=== PATIENT | female | born 1960 | race Caucasian/White ===

== ENCOUNTER → 2020-07-12 10:03 | Outpatient (BNVA) | payer MEDICARE, MEDICAID, SELFPAY | PROVIDERS: Family Provider Internal Medicine; PCP Internal Medicine; Visit Provider Internal Medicine Rheumatology | DX: M25.50 Pain in unspecified joint (principal); Z11.59 Encounter for screening for other viral diseases; Z79.899 Other long term (current) drug therapy; Z11.1 Encounter for screening for respiratory tuberculosis; R76.8 Other specified abnormal immunological findings in serum; M79.7 Fibromyalgia; R79.82 Elevated C-reactive protein (CRP); Z79.52 Long term (current) use of systemic steroids | CPT/HCPCS: 36415; 81001; 82306; 82570; 84156; 85651; 86140; 86480; 86704; 86803; 87340; 99204 ==

== ENCOUNTER 2020-07-17 12:54 | Outpatient (CLI) | payer MEDICARE, MEDICAID, SELFPAY ==
--- NOTE | 2020-07-17 13:16 | XR_ITS ---
WS: [id number] RIGHT FOOT: 3 VIEW(S) TECHNIQUE: AP, oblique and lateral. HISTORY: INFLAMMATORY ARTHRITIS COMPARISON: None available. No acute fracture or dislocation. Normal tarsal/metatarsal alignment. No metacarpal head erosions. Mild narrowing of the interphalangea l joints. No subluxations. Moderate size calcaneal spur. No soft tissue abnormality or bone destruction. XR/XR foot RT min 3V* [id number] IMPRESSION: Mild osteoarthritis at the interphalangeal joints. No erosions.
--- NOTE | 2020-07-17 13:16 | XR_ITS ---
WS: [id number] RIGHT HAND: 3 VIEW(S) TECHNIQUE: PA, oblique and lateral. HISTORY: INFLAMMATORY ARTHRITIS COMPARISON: None available. No acute fracture or dislocation. Mild foreshortening of the fourth and fifth metacarpals. No erosions. No periods cystitis or bone res orption. Mild narrowing of the interphalangeal joints. XR/XR hand RT min 3V* [id number] IMPRESSION: Mild osteoarthritis.
--- NOTE | 2020-07-17 13:30 | XR_ITS ---
WS: [id number] CHEST 2 VIEWS HISTORY: inflammatory arthritis COMPARISON: None available. Lungs: Clear with no abnormality. No pleural effusion or pneumothorax. Cardiac size: Normal. Mediastinum/Aorta: Normal mediastinum. Bones: RIGHT lateral dense osteophytes in the midthoracic spine. Prior cholecystectomy. XR/XR chest 2V* [id number] IMPRESSION: No acute cardiopulmonary disease.
--- NOTE | 2020-07-17 13:45 | XR_ITS ---
WS: [id number] LEFT HAND: 3 VIEW(S) TECHNIQUE: PA, oblique and lateral. HISTORY: inflammatory arthritis COMPARISON: None available. No acute fracture or dislocation. Mild narrowing of the interphalangeal joints. Mild shortening of the metacarpals. No erosions at the metacarpal heads. Cystic change in the scaphoid. Mild narrowing of the radial ulnar articulation. No osteopenia. XR/XR hand LT min 3V* [id number] IMPRESSION: Mild osteoarthritis. No erosions.
--- NOTE | 2020-07-17 14:00 | XR_ITS ---
WS: [id number] LEFT FOOT: 3 VIEW(S) TECHNIQUE: AP, oblique and lateral. HISTORY: inflammatory arthritis COMPARISON: None available. No acute fracture or dislocation. Normal tarsal/metatarsal alignment. Mild narrowing of the interphalangeal joints. No erosions. Mild bony hypertrophy in the proximal fift h metatarsal. Moderate size calcaneal spur. XR/XR foot LT min 3V* [id number] IMPRESSION: Osteoarthritis. Moderate size calcaneal spur.
== END 2020-07-17 12:55 | disposition home or self-care (01) ==
LOC: RADWPI 12:59
PROVIDERS: Family Provider Internal Medicine; PCP Internal Medicine; Visit Provider Internal Medicine Rheumatology
DX: M19.90 Unspecified osteoarthritis, unspecified site (principal); M19.072 Primary osteoarthritis, left ankle and foot; M19.071 Primary osteoarthritis, right ankle and foot; M77.32 Calcaneal spur, left foot; M19.042 Primary osteoarthritis, left hand; M19.041 Primary osteoarthritis, right hand
CPT/HCPCS: 71046; 73130; 73630

== ENCOUNTER → 2020-10-02 15:18 | Outpatient (BNVA) | payer MEDICARE, MEDICAID, SELFPAY | PROVIDERS: Family Provider Internal Medicine; PCP Internal Medicine; Visit Provider Internal Medicine Rheumatology | DX: R76.8 Other specified abnormal immunological findings in serum (principal); M19.90 Unspecified osteoarthritis, unspecified site; Z79.899 Other long term (current) drug therapy; Z79.52 Long term (current) use of systemic steroids; R79.82 Elevated C-reactive protein (CRP); M79.7 Fibromyalgia; M05.9 Rheumatoid arthritis with rheumatoid factor, unspecified | CPT/HCPCS: 99214 ==

== ENCOUNTER → 2021-02-06 09:55 | Outpatient (BNVA) | payer MEDICARE, MEDICAID, SELFPAY | PROVIDERS: Family Provider Internal Medicine; PCP Internal Medicine; Visit Provider Internal Medicine Rheumatology | DX: M19.90 Unspecified osteoarthritis, unspecified site (principal); Z79.899 Other long term (current) drug therapy | CPT/HCPCS: 36415; 80076; 82565; 85025; 86140 ==

== ENCOUNTER 2021-02-13 12:57 | Outpatient (CLI) | payer MEDICARE, MEDICAID, SELFPAY ==
--- NOTE | 2021-02-13 13:10 | MM_ITS ---
WS: [id number] BILATERAL SCREENING DIGITAL MAMMOGRAM WITH CAD HISTORY: SCREENING COMPARISON: 02/04/2019 and 01/26/2018 Bilateral CC and MLO views submitted. Computer aided detection analyzed. Breast composition: There are scattered areas of fibroglandular density. No suspicious masses, microc alcifications or architectural distortion. Benign calcifications in each breast. MM/[place] [id number] IMPRESSION: BI-RADS: 2-Benign FOLLOW UP: 1 Year Follow-up
== END 2021-02-13 12:58 | disposition home or self-care (01) ==
LOC: RADSHAW 13:03
PROVIDERS: PCP Internal Medicine; Visit Provider Nurse Practitioner Family
DX: M19.90 Unspecified osteoarthritis, unspecified site (principal); Z12.31 Encounter for screening mammogram for malignant neoplasm of breast; R76.8 Other specified abnormal immunological findings in serum; Z79.899 Other long term (current) drug therapy; M79.7 Fibromyalgia; R79.82 Elevated C-reactive protein (CRP); Z87.891 Personal history of nicotine dependence
CPT/HCPCS: 77067; 99214

== ENCOUNTER → 2021-05-15 09:48 | Outpatient (BNVA) | payer MEDICARE, MEDICAID, SELFPAY | PROVIDERS: PCP Internal Medicine; Visit Provider Internal Medicine Rheumatology | DX: M19.90 Unspecified osteoarthritis, unspecified site (principal); R76.8 Other specified abnormal immunological findings in serum; Z79.899 Other long term (current) drug therapy; M35.9 Systemic involvement of connective tissue, unspecified; M79.7 Fibromyalgia; Z87.891 Personal history of nicotine dependence | CPT/HCPCS: 99214 ==

== ENCOUNTER → 2021-06-06 13:02 | Outpatient (BNVA) | payer MEDICARE, MEDICAID, SELFPAY | PROVIDERS: PCP Internal Medicine; Visit Provider Internal Medicine Rheumatology | DX: M19.90 Unspecified osteoarthritis, unspecified site (principal); R76.8 Other specified abnormal immunological findings in serum; Z79.899 Other long term (current) drug therapy | CPT/HCPCS: 36415; 80076; 82565; 85025; 86140 ==

== ENCOUNTER → 2021-08-28 14:20 | Outpatient (BNVA) | payer MEDICARE, MEDICAID, SELFPAY | PROVIDERS: PCP Internal Medicine; Visit Provider Internal Medicine Rheumatology | DX: M19.90 Unspecified osteoarthritis, unspecified site (principal); R76.8 Other specified abnormal immunological findings in serum; M35.9 Systemic involvement of connective tissue, unspecified; Z79.899 Other long term (current) drug therapy; M79.7 Fibromyalgia; Z71.89 Other specified counseling; Z87.891 Personal history of nicotine dependence | CPT/HCPCS: 99214 ==

== ENCOUNTER 2021-12-18 10:45 | Outpatient (CLI) | payer MEDICARE, MEDICAID, SELFPAY ==
[2021-12-18 11:13] LABS: Basophils # 0.1 10^3/uL (0.0-0.1); Basophils % 0.9 %; Eosinophils # 0.2 10^3/uL (0.0-0.8); Eosinophils % 2.4 %; Hematocrit 40.8 % (37.0-47.0); Hemoglobin 12.8 g/dL (11.5-15.3); Lymphocytes # 1.5 10^3/uL (0.8-4.8); Lymphocytes % 22.4 %; Mean Corpuscular HGB Conc 31.4 g/dL (30.0-36.0); Mean Corpuscular Hemoglobin 27.2 pg (28.0-34.0); Mean Corpuscular Volume 86.6 fl (81-99); Mean Platelet Volume 9.3 fL (7.4-10.4); Monocytes # 0.8 10^3/uL (0.2-0.9); Monocytes % 11.6 %; Neutrophils # 4.22 10^3/uL (1.8-7.7); Nucleated Red Blood Cells % 0 %; Platelet Count 302 10^3/cmm (130-400); Red Blood Count 4.71 10^6/uL (4.1-5.3); Red Cell Distribution Width 14.4 % (12.1-15.1); White Blood Count 6.8 10^3/uL (4.0-10.0)
[2021-12-18 11:30] LABS: Alanine Aminotransferase 17 U/L (0-33); Albumin Level 4.1 g/dL (3.5-5.2); Alkaline Phosphatase 50 IU/L (35-105); Aspartate Amino Transferase 21 U/L (0-32); C Reactive Protein 9.6 mg/L (0.0-4.9); Globulin 3.1 g/dL (1.3-4.6); Glomerular Filtration Rate 72.9 mL/min (90-130); Total Bilirubin 0.2 mg/dL (0.15-1.2); Total Protein 7.2 g/dL (6.6-8.7)
== END 2021-12-18 10:46 | disposition home or self-care (01) ==
LOC: LAB 10:51
PROVIDERS: PCP Internal Medicine; Visit Provider Internal Medicine Rheumatology
DX: M35.9 Systemic involvement of connective tissue, unspecified (principal); Z79.899 Other long term (current) drug therapy
CPT/HCPCS: 36415; 80076; 82565; 85025; 86140

== ENCOUNTER → 2022-01-01 14:43 | Outpatient (BNVA) | payer MEDICARE, MEDICAID, SELFPAY | PROVIDERS: PCP Internal Medicine; Visit Provider Internal Medicine Rheumatology | DX: R76.8 Other specified abnormal immunological findings in serum (principal); M19.90 Unspecified osteoarthritis, unspecified site; M35.9 Systemic involvement of connective tissue, unspecified; Z79.899 Other long term (current) drug therapy; M54.12 Radiculopathy, cervical region; M79.7 Fibromyalgia; Z71.89 Other specified counseling | CPT/HCPCS: 99214 ==

== ENCOUNTER → 2022-04-28 13:48 | Outpatient (BNVA) | payer MEDICARE, MEDICAID, SELFPAY | PROVIDERS: PCP Internal Medicine; Visit Provider Internal Medicine Rheumatology | DX: M06.041 Rheumatoid arthritis without rheumatoid factor, right hand (principal); M06.042 Rheumatoid arthritis without rheumatoid factor, left hand; M54.12 Radiculopathy, cervical region; Z79.899 Other long term (current) drug therapy; R76.8 Other specified abnormal immunological findings in serum; M35.9 Systemic involvement of connective tissue, unspecified; Z71.89 Other specified counseling | CPT/HCPCS: 36415; 80076; 82565; 85025; 86140; 99214 ==

== ENCOUNTER → 2022-10-02 09:01 | Outpatient (BNVA) | payer MEDICARE, MEDICAID, SELFPAY | PROVIDERS: PCP Internal Medicine; Visit Provider Internal Medicine Rheumatology | DX: M06.041 Rheumatoid arthritis without rheumatoid factor, right hand (principal); M06.042 Rheumatoid arthritis without rheumatoid factor, left hand; Z79.899 Other long term (current) drug therapy; R76.8 Other specified abnormal immunological findings in serum; Z71.89 Other specified counseling; M79.7 Fibromyalgia; M54.12 Radiculopathy, cervical region | CPT/HCPCS: 99214 ==

== ENCOUNTER → 2022-12-30 09:16 | Outpatient (BNVA) | payer MEDICARE, MEDICAID, SELFPAY | PROVIDERS: PCP Internal Medicine; Visit Provider Internal Medicine Rheumatology | DX: M06.041 Rheumatoid arthritis without rheumatoid factor, right hand (principal); M06.042 Rheumatoid arthritis without rheumatoid factor, left hand; Z79.899 Other long term (current) drug therapy; R76.8 Other specified abnormal immunological findings in serum; Z71.89 Other specified counseling; M79.7 Fibromyalgia; M54.12 Radiculopathy, cervical region; Z79.52 Long term (current) use of systemic steroids | CPT/HCPCS: 36415; 80076; 82565; 85025; 86140; 99214 ==

== ENCOUNTER → 2023-02-24 10:17 | Outpatient (BNVA) | payer MEDICARE, MEDICAID, SELFPAY | PROVIDERS: PCP Internal Medicine; Visit Provider Internal Medicine Rheumatology | DX: M06.041 Rheumatoid arthritis without rheumatoid factor, right hand (principal); M06.042 Rheumatoid arthritis without rheumatoid factor, left hand; Z79.899 Other long term (current) drug therapy; R76.8 Other specified abnormal immunological findings in serum; Z71.89 Other specified counseling; M79.7 Fibromyalgia | CPT/HCPCS: 99214 ==

== ENCOUNTER → 2023-06-02 10:01 | Outpatient (BNVA) | payer MEDICARE, MEDICAID, SELFPAY | PROVIDERS: PCP Internal Medicine; Visit Provider Internal Medicine Rheumatology | DX: M06.041 Rheumatoid arthritis without rheumatoid factor, right hand (principal); M06.042 Rheumatoid arthritis without rheumatoid factor, left hand; Z79.899 Other long term (current) drug therapy; M79.7 Fibromyalgia; Z71.89 Other specified counseling; R76.8 Other specified abnormal immunological findings in serum | CPT/HCPCS: 36415; 80076; 82565; 85025; 86140; 99214 ==

== ENCOUNTER → 2023-09-01 11:34 | Outpatient (BNVA) | payer MEDICARE, MEDICAID, SELFPAY | PROVIDERS: PCP Internal Medicine; Visit Provider Internal Medicine Rheumatology | DX: Z79.899 Other long term (current) drug therapy (principal); M06.041 Rheumatoid arthritis without rheumatoid factor, right hand; M06.042 Rheumatoid arthritis without rheumatoid factor, left hand; M35.9 Systemic involvement of connective tissue, unspecified; R79.82 Elevated C-reactive protein (CRP); R76.8 Other specified abnormal immunological findings in serum; Z71.89 Other specified counseling; M79.7 Fibromyalgia | CPT/HCPCS: 36415; 80076; 82565; 85025; 86140; 86480; 99214 ==

== ENCOUNTER → 2023-12-31 10:59 | Outpatient (BNVA) | payer OTHER, MEDICAID, SELFPAY | PROVIDERS: PCP Internal Medicine; Visit Provider Internal Medicine Rheumatology | DX: Z79.899 Other long term (current) drug therapy (principal); M06.041 Rheumatoid arthritis without rheumatoid factor, right hand; M06.042 Rheumatoid arthritis without rheumatoid factor, left hand; R76.8 Other specified abnormal immunological findings in serum; Z71.89 Other specified counseling; M79.7 Fibromyalgia | CPT/HCPCS: 80076; 82565; 85025; 86140; 99214 ==

== ENCOUNTER 2024-08-04 13:08 | Outpatient (CLI) | payer OTHER, MEDICAID, SELFPAY ==
[2024-08-04 14:04] LABS: Hepatitis B Core AB, Total Non-Reactive (Nonreactive); Hepatitis B Surface Antigen Non-Reactive (Nonreactive); Hepatitis C Virus Antibody Non-Reactive (Nonreactive)
== END 2024-08-04 13:09 | disposition home or self-care (01) ==
LOC: LAB 13:09
PROVIDERS: PCP Internal Medicine; Visit Provider Internal Medicine Rheumatology
DX: M06.041 Rheumatoid arthritis without rheumatoid factor, right hand (principal); M06.042 Rheumatoid arthritis without rheumatoid factor, left hand; Z79.899 Other long term (current) drug therapy; Z71.85 Encounter for immunization safety counseling; R76.8 Other specified abnormal immunological findings in serum; M79.7 Fibromyalgia; Z11.1 Encounter for screening for respiratory tuberculosis; Z11.59 Encounter for screening for other viral diseases; M54.12 Radiculopathy, cervical region
CPT/HCPCS: 36415; 86704; 86803; 87340; 99214

== ENCOUNTER 2024-09-02 08:21 | Observation (INO) | payer MEDICARE, MEDICAID, SELFPAY ==
[2024-09-02] VITALS (13 sets, daily range): BP systolic 106–162; BP diastolic 59–91; PULSE 66–85; RESP 12–18; TEMP 36.6–36.9; O2SAT 94–100; BMI 32.3; BMI 33.1
--- NOTE | 2024-09-02 08:24 | XR_ITS ---
WS: [id number] XR chest 1V portable [id number] REASON FOR EXAM: dyspnea/cough FINDINGS: The chest is unchanged compared to 07/17/2020. Mild tortuosity of the thoracic aorta. Mild cardiomegaly. Calcified granulomas disease. No focal lung lesion. No acute pulmonary parenchymal or pleural abnormality. Moderate degenerative spondylosis in the mid and lower thoracic spine. Moderate osteoarthritis in the shoulder joints. XR/XR chest 1V portable [id number] IMPRESSION: Stable chest without acute abnormality.
--- NOTE | 2024-09-02 08:24 | ECG_ITS ---
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 Measurements Intervals [place] Rate: 71 P: 62 MO: 152 QRS: -61 QRSD: 119 T: 49 QT: 382 QTc: 416 Interpretive Statements SINUS RHYTHM PATTERN CONSISTENT WITH PULMONARY DISEASE LEFT ANTERIOR FASCICULAR BLOCK [QRS AXIS <= -45, QR IN I, RS IN II] MODERATE VOLTAGE CRITERIA FOR LVH, CONSIDER NORMAL VARIANT [MEETS CRITERIA IN ONE OF: R(aVL), S(V1), R(V5), R(V5/V6)+S(V1)] POSSIBLE SEPTAL MYOCARDIAL INFARCTION , OF INDETERMINATE AGE [30 ms Q WAVE IN V1/V2] No previous ECG available for comparison Electronically Signed On 09-02-2024 22:25:21 CDT by Lorelei Lucas M.D. [email or web address]
[2024-09-02 08:47] LABS: Basophils # 0.1 10^3/uL (0.0-0.1); Basophils % 0.7 %; Eosinophils # 0.1 10^3/uL (0.0-0.8); Eosinophils % 1.9 %; Hematocrit 41.7 % (36-47); Lymphocytes # 1.7 10^3/uL (0.8-4.8); Lymphocytes % 25.5 %; Mean Corpuscular HGB Conc 32.1 g/dL (30-55); Mean Corpuscular Hemoglobin 29.8 pg (27-33); Mean Corpuscular Volume 92.9 fl (85-98); Mean Platelet Volume 9.2 fL (7.4-10.4); Monocytes # 0.8 10^3/uL (0.2-0.9); Monocytes % 11.6 %; Neutrophils # 3.98 10^3/uL (1.8-7.7); Neutrophils % 59.4 %; Nucleated Red Blood Cells % 0 %; Platelet Count 293 10^3/cmm (157-399); Red Blood Count 4.49 10^6/uL (3.85-5.65); Red Cell Distribution Width 13.8 % (12.1-15.1); White Blood Count 6.71 10^3/uL (3.29-11.43)
--- NOTE | 2024-09-02 08:52 | ED_ITS ---
HPI - Arrhythmia/Palpitations 2 General: Chief Complaint: Arrhythmia/Palpitations Stated Complaint: chest discomfort Time Seen by Provider: 09/02/24 08:24 History of Present Illness: 63-year-old female presents emergency ro om complaining of chest discomfort she had palpitations overnight intermittently. She describes it as flip-flopping. She has a history of asthma has a history of diabetes mellitus her blood sugar was stable this morning she denies any fever sweats or chills. She has slight shortness of breath. No productive cough. No fever sweats or chills Related Data Home Medications Medication Instructions Recorded Confirmed albuterol sulfate 90 mcg/actuation 2 puff inhalation Q6H PRN 07/11/20 09/02/24 aerosol inhaler (Ventolin HFA) restricted breathing aspirin 81 mg tablet,delayed 81 mg PO DAILY 07/11/20 09/02/24 release metformin 500 mg tablet 500 mg PO DAILY 07/11/20 09/02/24 geriatric [id number]-hjrd-eotc 1 tab PO DAILY 07/12/20 09/02/24 montelukast 10 mg tablet 10 mg PO DAILY 07/12/20 09/02/24 (Singulair) hydroxychloroquine 200 mg tablet 400 mg PO DAILY 09/02/24 09/02/24 Previous Rx's Medication Instructions Recorded diclofenac sodium 1 % topical gel See Rx Instructions .Route 12/31/23 .COMPLEX #100 grams gabapentin 300 mg capsule 300 mg PO BID #60 caps 08/04/24 methotrexate sodium 2.5 mg tablet See Rx Instructions PO .Q7days #90 08/04/24 tabs pantoprazole 40 mg tablet,delayed 40 mg PO DAILY #90 tabs 08/04/24 release prednisone 2.5 mg tablet 2.5 mg PO DAILY #90 tabs 08/04/24 tofacitinib 5 mg tablet (Xeljanz) 5 mg PO BID #60 tabs 08/04/24 Allergies Allergy/AdvReac Type Severity Reaction Status Date / Time buspirone [From BuSpar] Allergy Unknown Verified 09/02/24 08:31 Sulfa (Sulfonamide Allergy Unknown Verified 09/02/24 08:31 Antibiotics) unknown abx Allergy ALGY-Hives Uncoded 09/02/24 08:32 Review of Systems 2 Const: Denies: fever(s) or chills Card: Denies: chest pain Resp: Denies: dyspnea GI: Denies: abdominal pain : Denies: dysuria, urinary frequency or urinary urgency Musc: Denies: neck pain or back pain Skin/Breast: Denies: rash PFSH ED 2 PFSH: Medical History Seronegative rheumatoid arthritis of both hands Cervical radiculopathy Undifferentiated connective tissue disease Elevated C-reactive protein (CRP) Fibromyalgia Immunization counseling High risk medication use Inflammatory arthritis Positive OBDULIO (antinuclear antibody) GERD (gastroesophageal reflux disease) Joint pain History of hypercholesterolemia Surgical History History of delivery History of cholecystectomy Family History Other Cancer Diabetes Hypertension Rheumatoid arthritis Stroke Denies family history of Lupus CAD (coronary artery disease) Chronic kidney disease (CKD) Social History Smoking and tobacco/nicotine status: former use of tobacco/nicotine Alcohol intake: never Substance/Drug Use: never Physical Exam 2 Const: GENERAL APPEARANCE: cooperative ORIENTATION/CONSCIOUSNESS: Yes awake, Yes oriented to person, Yes oriented to place and Yes oriented to time HENMT: COMMON NORMALS: normocephalic, atraumatic and hearing grossly normal bilaterally HEAD & SCALP: normocephalic and atraumatic Resp: COMMON NORMALS: normal respiratory effort, No retractions and No use of accessory muscles AUSCULTATION: wheezes Cardio: COMMON NORMALS: regular rate, regular rhythm and No murmurs present (Cardio) RATE: regular rate RHYTHM: regular rhythm GI: COMMON NORMALS: Soft to palpation and No hepatosplenomegaly present A USCULTATION: Yes normoactive bowel sounds PALPATION: Yes Soft to palpation, No Tenderness to palpation present (GI), No Guarding due to palpation present (GI) and Yes No hepatosplenomegaly present Extremity: COMMON NORMALS: normal to inspection, capillary refill normal, no clubbing, cyanosis or edema, no calf tenderness and no pedal edema Neuro: SENSORIUM/ORIENTATION: Yes oriented to person, Yes oriented to place and Yes oriented to time Skin: COMMON NORMALS: no rashes or lesions noted GENERAL SKIN EXAM: no rashes or lesions noted Course 2 Vital Signs: Vital signs: Vital Signs Temperature 98.2 F 09/02/24 08:22 Pulse Rate 80 09/02/24 14:47 Respiratory Rate 18 09/02/24 13:28 Blood Pressure 141/69 09/02/24 14:47 Pulse Oximetry 96 09/02/24 14:47 Oxygen Delivery Me thod Room Air 09/02/24 14:47 MDM - Arrhythmia/Palpitations Medical Decision Making Cardiac enzymes negative patient still complaining of chest discomfort patient placed on IV nitro. Given her continued discomfort we will go ahead and admit her she does have some risk factors given age and elevated blood pressure. Discussed with hospitalist consult cardiology Medical Records I reviewed the patient's medical records. Lab Data I reviewed the patient's lab results. 09/02/24 08:10 09/02/24 08:10 Radiology Impressions Chest X-Ray 09/02/24 08:24 IMPRESSION: Stable chest without acute abnormality. Chest CTA 09/02/24 12:11 IMPRESSION: Patchy ground-glass density involving both lungs. This most likely represents an inflammatory interstitial process such as bronchiolitis. Laboratory Results WBC 6.71 10^3/uL (3.29-11.43) 09/02/24 08:10 RBC 4.49 10^6/uL (3.85-5.65) 09/02/24 08:10 Hgb 13.40 g/dL (11.27-16.99) 09/02/24 08:10 Hct 41.7 % (36-47) 09/02/24 08:10 MCV 92.9 fl (85-98) 09/02/24 08:10 MCH 29.8 pg (27-33) 09/02/24 08:10 MCHC 32.1 g/dL (30-55) 09/02/24 08:10 RDW 13.8 % (12.1-15.1) 09/02/24 08:10 Plt Count 293 10^3/cmm (157-399) 09/02/24 08:10 MPV 9.2 fL (7.4-10.4) 09/02/24 08:10 Neut % (Auto) 59.4 % 09/02/24 08:10 Lymph % (Auto) 25.5 % 09/02/24 08:10 Schley % (Auto) 11.6 % 09/02/24 08:10 Eos % (Auto) 1.9 % 09/02/24 08:10 Baso % (Auto) 0.7 % 09/02/24 08:10 Neut # (Auto) 3.98 10^3/uL (1.8-7.7) 09/02/24 08:10 Lymph # (Auto) 1.7 10^3/uL (0.8-4.8) 09/02/24 08:10 Schley # (Auto) 0.8 10^3/uL (0.2-0.9) 09/02/24 08:10 Eos # (Auto) 0.1 10^3/uL (0.0-0.8) 09/02/24 08:10 Baso # (Auto) 0.1 10^3/uL (0.0-0.1) 09/02/24 08:10 Nucleated RBC % (auto) 0 % 09/02/24 08:10 Nucleated RBCs # 0.0 /100WBC 09/02/24 08:10 Sodium 139 mmol/L (136-145) 09/02/24 08:10 Potassium 4.2 mmol/L (3.5-5.1) 09/02/24 08:10 Chloride 101 mmol/L (98-107) 09/02/24 08:10 Carbon Dioxide 26 mmol/L (22-29) 09/02/24 08:10 Anion Gap 16.2 (5-19) 09/02/24 08:10 BUN 18 mg/dL (8-23) 09/02/24 08:10 Creatinine 0.8 mg/dL (0.5-0.9) 09/02/24 08:10 GFR Calculation 72.4 mL/min (90-130) L 09/02/24 08:10 Glucose 92 mg/dL (65-115) 09/02/24 08:10 Calculated Osmolality 290 mOsm/kg (285-295) 09/02/24 08:10 Calcium 9.0 mg/dL (8.5-10.5) 09/02/24 08:10 Magnesium 1.9 mg/dL (1.7-2.3) 09/02/24 10:12 Total Bilirubin 0.3 mg/dL (0.15-1.2) 09/02/24 08:10 AST 42 U/L (0-32) H 09/02/24 08:10 ALT 67 U/L (0-33) H 09/02/24 08:10 Alkaline Phosphatase 51 U/L (35-105) 09/02/24 08:10 Troponin T Baseline 10 ng/L (0-10) 09/02/24 08:10 Troponin T 120 Minute 8.10 ng/L (0-10) 09/02/24 10:12 Delta Troponin T -1.90 ABS# (0-10) L 09/02/24 10:12 Troponin T Hi Sens 6Hr 8.78 ng/L (0-10) 09/02/24 14:29 Troponin T Hi Sens 6Hr Delta -1.22 ng/L (0-12) L 09/02/24 14:29 NT-Pro-B Natriuret Pep 182 pg/mL (0-125) H 09/02/24 08:10 Total Protein 7.2 g/dL (6.6-8.7) 09/02/24 08:10 Albumin 4.7 g/dL (3.5-5.2) 09/02/24 08:10 Globulin 2.5 g/dL (1.3-4.6) 09/02/24 08:10 TSH 1.48 uIU/mL (0.27-4.20) 09/02/24 10:12 Urine Color Yellow (Yellow) 09/02/24 13:13 Urine Appearance Clear (CLEAR) 09/02/24 13:13 Urine pH 7.0 (5-7) 09/02/24 13:13 Ur Specific [place] 1.021 (1.005-1.030) 09/02/24 13:13 Urine Protein Negative (Negative) 09/02/24 13:13 Urine Glucose (UA) Negative (Normal) 09/02/24 13:13 Urine Ketones Negative (Negative) 09/02/24 13:13 Urine Blood Negative (Negative) 09/02/24 13:13 Urine Nitrate Negative (Negative) 09/02/24 13:13 Urine Bilirubin Negative (Negative) 09/02/24 13:13 Urine Urobilinogen 0.2 mg/dL (Negative) 09/02/24 13:13 Ur Leukocyte Esterase Negative (Negative) 09/02/24 13:13 Urine RBC 0-2 /hpf (0-2) 09/02/24 13:13 Urine WBC 0-5 /hpf (0-5) 09/02/24 13:13 Ur Squamous Epith Cells 0-5 /hpf (0-5) 09/02/24 13:13 Amorphous Sediment Not Reportable 09/02/24 13:13 Urine Bacteria None seen /hpf (NONE) 09/02/24 13:13 Hyaline Casts 0-4 /lpf H 09/02/24 13:13 Hepatitis A IgM Ab Non-reactive (Nonreactive) 09/02/24 08:10 Hep Bs Antigen Non-reactive (Nonreactive) 09/02/24 08:10 Hep B Core IgM Ab Non-reactive (Nonreactive) 09/02/24 08:10 Hepatitis C Antibody Non-reactive (Nonreactive) 09/02/24 08:10 All radiology interpretation(s) finalized by discharge Discharge Plan Discharge Patient Disposition: Admitted As Inpatient Admit Provider: Rishabh You Clinical Impression: Chest pain, Heart palpitations Condition: Stable Coding Level of Care Code ED [employer] for [employer]
[2024-09-02 09:08] LABS: Alanine Aminotransferase 67 U/L (0-33); Albumin Level 4.7 g/dL (3.5-5.2); Alkaline Phosphatase 51 U/L (35-105); Aspartate Amino Transferase 42 U/L (0-32); Blood Urea Nitrogen 18 mg/dL (8-23); Carbon Dioxide 26 mmol/L (22-29); Chloride 101 mmol/L (98-107); Creatinine Clr Calc Pharmacy 82.4659; Globulin 2.5 g/dL (1.3-4.6); Glomerular Filtration Rate 72.4 mL/min (90-130); Glucose 92 mg/dL (65-115); Osmolality Calculated 290 mOsm/kg (285-295); Sodium 139 mmol/L (136-145); Total Bilirubin 0.3 mg/dL (0.15-1.2); Total Protein 7.2 g/dL (6.6-8.7); Troponin(5th) Baseline 10 ng/L (0-10)
[2024-09-02 09:10] LABS: Anion Gap 16.2 (5-19); Potassium 4.2 mmol/L (3.5-5.1)
--- NOTE | 2024-09-02 10:27 | ECG_ITS ---
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 Measurements Intervals [place] Rate: 70 P: 72 RI: 155 QRS: -64 QRSD: 116 T: 52 QT: 394 QTc: 428 Interpretive Statements SINUS RHYTHM PATTERN CONSISTENT WITH PULMONARY DISEASE LEFT ANTERIOR FASCICULAR BLOCK [QRS AXIS <= -45, QR IN I, RS IN II] MINIMAL VOLTAGE CRITERIA FOR LVH, CONSIDER NORMAL VARIANT [MEETS CRITERIA IN ONE OF: R(aVL), S(V1), R(V5), R(V5/V6)+S(V1)] SEPTAL MYOCARDIAL INFARCTION , OF INDETERMINATE AGE [40+ ms Q WAVE IN V1/V2] Compared to ECG 09/02/2024 08:24:05 No significant changes Electronically Signed On 09-02-2024 22:41:38 CDT by Lorelei Lucas M.D. [email or web address]
[2024-09-02] MEDS: nitroglycerin 1 gm/inch oint Pkt 0.5 INCH TOPICAL (11:28)
--- NOTE | 2024-09-02 12:11 | CTR_ITS ---
PROCEDURE INFORMATION: Exam: CTA Chest With Contrast Exam date and time: 09/02/2024 12:27 PM Age: 63 years old Clinical indication: Pain; Chest pressure; Additional info: Chest pain, dyspnea, back pain TECHNIQUE: Imaging protocol: Computed tomographic angiography of the chest with contrast. Exam focused on the arteries. 3D rendering (Not supervised by radiologist): MIP and/or 3D reconstructed images were created by the technologist. Radiation optimization: All CT scans at this facility use at least one of these dose optimization techniques: automated exposure control; mA and/or kV adjustment per patient size (includes targeted exams where dose is matched to clinical indication); or iterative reconstruction. Contrast material: OMNI 350; Contrast volume: 59 ml; Contrast route: INTRAVENOUS (IV); COMPARISON: CR XR chest 1V portable [id number] 09/02/2024 8:35 AM RADIATION DOSE METRICS: Total DLP (mGy-cm): 401.59 FINDINGS: Pulmonary arteries: Normal. No pulmonary emboli. Aorta: Unremarkable. No aortic aneurysm. No aortic dissection. Lungs: Both lungs demonstrate patchy areas of ground-glass density but I see no dense consolidation or mass. Pleural spaces: Unremarkable. No pneumothorax. No pleural effusion. Heart: Unremarkable. No cardiomegaly. No pericardial effusion. Lymph nodes: Unremarkable. No enlarged lymph nodes. Bones/joints: Unremarkable. No acute fracture. Soft tissues: Unremarkable. CT/CT angio chest PE protcl [id number] IMPRESSION: Patchy ground-glass density involving both lungs. This most likely represents an inflammatory interstitial process such as bronchiolitis.
--- NOTE | 2024-09-02 12:17 | P.HP_ITS ---
Providers/Chief Complaint 2 Admitting Physician: Rishabh You MD Primary Care Provider: Cody Ortega DO Chief Complaint: chest discomfort History of Present Illness Jaye Jones is a 63 year old female coming to the emergency department with chest discomfort. She has a tremendous difficulty describing her symptoms. She does know that around 10 PM last night, while still awake but not exerting herself she had some fluttering in her chest. This got a little bit better, but recurred in the night. She denies any pressure on her chest to me, but the nurse relates she did describe some of this in the emergency department. She definitely had some back discomfort, upper back. Currently states she is she still has a little flutter in her chest, but not bad. Now she is having some low back pain. Had a little nausea last night. Some shortness of breath. She has been swollen lately in her feet. Does not really describe any orthopnea, but again history is very difficult. No recent fevers, no diarrhea, no blood in stool or black or tarry stool. Reports she does have frequent heartburn, despite taking Protonix. Review of Systems 2 General: Reports: 10 or more systems reviewed and unremarkable except in HPI and below Card: Reports: chest pain, palpitations and swelling of feet/ankles Resp: Reports: dyspnea GI: Reports: nausea and vomiting; Denies: abdominal pain, hematochezia or melena Medications/Allergies Home Medications Medication Instructions Recorded Confirmed Last Taken Type albuterol sulfate 90 mcg/actuation 2 puff inhalation Q6H PRN 07/11/20 09/02/24 Unknown History aerosol inhaler (Ventolin HFA) restricted breathing aspirin 81 mg tablet,delayed 81 mg PO DAILY 07/11/20 09/02/24 09/01/24 History release metformin 500 mg tablet 500 mg PO DAILY 07/11/20 09/02/24 09/01/24 History geriatric bggzsvmp-hgra-gihn 1 tab PO DAILY 07/12/20 09/02/24 09/01/24 History montelukast 10 mg tablet 10 mg PO DAILY 07/12/20 09/02/24 09/01/24 History (Singulair) diclofenac sodium 1 % topical gel See Rx Instructions .Route 12/31/23 09/02/24 Unknown Rx .COMPLEX #100 grams gabapentin 300 mg capsule 300 mg PO BID #60 caps 08/04/24 09/02/24 09/01/24 Rx methotrexate sodium 2.5 mg tablet See Rx Instructions PO .Q7days #90 08/04/24 09/02/24 08/26/24 Rx tabs pantoprazole 40 mg tablet,delayed 40 mg PO DAILY #90 tabs 08/04/24 09/02/24 09/01/24 Rx release prednisone 2.5 mg tablet 2.5 mg PO DAILY #90 tabs 08/04/24 09/02/24 09/01/24 Rx tofacitinib 5 mg tablet (Xeljanz) 5 mg PO BID #60 tabs 08/04/24 09/02/24 09/01/24 Rx hydroxychloroquine 200 mg tablet 400 mg PO DAILY 09/02/24 09/02/24 09/01/24 History Allergies Allergy/AdvReac Type Severity Reaction Status Date / Time buspirone [From BuSpar] Allergy Unknown Verified 09/02/24 08:31 Sulfa (Sulfonamide Allergy Unknown Verified 09/02/24 08:31 Antibiotics) unknown abx Allergy ALGY-Hives Uncoded 09/02/24 08:32 PFSH Acute 2 PFSH: Medical History Seronegative rheumatoid arthritis of both hands Cervical radiculopathy Undifferentiated connective tissue disease Elevated C-reactive protein (CRP) Fibromyalgia Immunization counseling High risk medication use Inflammatory arthritis Positive OBDULIO (antinuclear antibody) GERD (gastroesophageal reflux disease) Joint pain History of hypercholesterolemia Surgical History History of delivery History of cholecystectomy Family History Other Cancer Diabetes Hypertension Rheumatoid arthritis Stroke Denies family history of Lupus CAD (coronary artery disease) Chronic kidney disease (CKD) Social History (Updated 09/02/24 @ 12:21 by Rishabh You MD) Smoking and tobacco/nicotine status: former use of tobacco/nicotine Alcohol intake: never Substance/Drug Use: never Vitals/I&O/Wt Last Vital Signs Temp 98.2 F 09/02/24 08:22 Pulse 72 09/02/24 11:28 Resp 18 09/02/24 09:04 BP 123/63 09/02/24 11:28 Pulse Ox 98 09/02/24 10:30 O2 Del Method Room Air 09/02/24 10:30 Weight last 48 hrs Weight 72.575 kg Physical Exam 2 Narrative: General exam is a white female, with quite a bit of difficulty explaining her current symptomatology. This seems to be her baseline. Family is around and helping. HEENT: Atraumatic normocephalic. Pupils equally round. Oropharynx clear Neck is supple no lymphadenopathy thyromegaly Cardiovascular regular rate and rhythm, heart sounds distant Lungs clear no wheezing or crackles Abdomen is soft obese nontender with positive bowel sounds. No obvious organomegaly exam deferred Extremities 1+ edema bilaterally. No cyanosis or clubbing Skin no rash Neuro no focal deficits Data 09/02/24 08:10 09/02/24 08:10 Other Labs: LFTs are slightly high with an AST of 42 and an ALT of 67 I have ordered a magnesium, TSH, BNP Calcium, albumin, bilirubin, alk phos normal. Troponin 10 and repeat 8 Chest x-ray by my read demonstrates no infiltrate. EKG by my read demonstrates sinus rhythm, left axis deviation. Poor R wave progression. Left anterior fascicular block. A&P Assessment and plan (1) Chest pain: Patient presents with ill-defined chest discomfort. She gives me more history of palpitations, but to the emergency department she is given history of pressure. Certainly gives both of us a history of some discomfort into her upper back. She cannot really qualify the discomfort. Either way, this is better. Differential is a large. Enzymes do not indicate an TN, but angina is not completely excluded. Also cannot exclude aorta abnormalities, CHF, PE, musculoskeletal pain, anxiety, reflux, etc. For now we will go ahead and do a CTA of her chest secondary to her chest discomfort radiating to her back associated with shortness of breath. With her cardiac enzyme, and EKG without any acute findings, I am not going to anticoagulate her at this time other than DVT prophylaxis. Will await for the studies first as she has no significant discomfort now. Will give Tylenol by mouth Okay to give aspirin, and daily until etiology of problem is investigated further (2) Palpitations: Check TSH Magnesium level next telemetry (3) Edema: Lasix 40 mg IV x 1. Reassessment need for more diuretic in the morning Check BNP Echocardiogram Venous duplex UA with micro (4) Transaminitis: Hepatitis panel Recheck tomorrow (5) Seronegative rheumatoid arthritis of both hands: Continue prednisone, hydroxychloroquine. Note that she is also on methotrexate and tofacitinib. Hold these currently. Plan Diabetes mellitus. Sliding scale insulin History of asthma. Budesonide twice daily, DuoNeb as needed. No evidence of asthma exacerbation currently. Multiple other medical problems as outlined in past medical history Full code Lovenox for DVT prophylaxis Attestations 2 Medical Necessity Statement*: Will require less than 2 midnight stay for evaluation and treatment of chest discomfort Diagnoses Chest pain R07.9 Palpitations R00.2 Edema R60.9 Transaminitis R74.01 Seronegative rheumatoid arthritis of both hands M06.041; M06.042 Time Spent (min) 55
--- NOTE | 2024-09-02 12:25 | USR_ITS ---
PROCEDURE INFORMATION: Exam: US Duplex Lower Extremity Veins, Bilateral Exam date and time: 09/02/2024 4:01 PM Age: 63 years old Clinical indication: Edema, localized; Lower extremity, bilateral TECHNIQUE: Imaging protocol: Real-time duplex ultrasound of the bilateral extremities with 2-D valdez scale, color Doppler flow and spectral waveform analysis including responses to compression and other maneuvers (when performed) with image documentation. Complete exam focused on the lower extremity veins. COMPARISON: No relevant prior studies available. FINDINGS: Right deep veins: Unremarkable. The common femoral, femoral, proximal profunda femoral and popliteal veins are patent without thrombus. Normal Doppler waveforms. Normal compressibility and/or augmentation response. Left deep veins: Unremarkable. The common femoral, femoral, proximal profunda femoral and popliteal veins are patent without thrombus. Normal Doppler waveforms. Normal compressibility and/or augmentation response. Superficial veins: Greater saphenous veins at the saphenofemoral junctions are patent bilaterally without thrombus. Soft tissues: Unremarkable. US/CV venous duplex [facility] [id number] IMPRESSION: No evidence of deep vein thrombosis.
[2024-09-02 12:41] LABS: Magnesium 1.9 mg/dL (1.7-2.3); Thyroid Stimulating Hormone 1.48 uIU/mL (0.27-4.20)
[2024-09-02 13:09] LABS: Hepatitis A Antibody IgM Non-Reactive (Nonreactive); Hepatitis B Core IgM Non-Reactive (Nonreactive); Hepatitis B Surface Antigen Non-Reactive (Nonreactive); Hepatitis C Virus Antibody Non-Reactive (Nonreactive)
[2024-09-02 13:10] LABS: NT Pro B Type Natriuretic Pept 182 pg/mL (0-125)
[2024-09-02] MEDS: aspirin 81 mg Chew Tablet 324 MG PO (13:20)
[2024-09-02] MEDS: FUROsemide 10 mg/mL SDV 4mL 40 MG IVP (13:21)
[2024-09-02] MEDS: iohexol 350 mg/mL 500 mL Btl (per mL) IV (13:31)
[2024-09-02 13:38] LABS: Bilirubin Urine Negative (Negative); Blood Urine Negative (Negative); Glucose Urine UA Negative (Normal); Ketones Urine Negative (Negative); Leukocyte Esterase Urine Negative (Negative); Nitrate Urine Negative (Negative); Protein Urine Negative (Negative); Specific Gravity, Urine 1.021 (1.005-1.030); Urine Appearance Clear (CLEAR); Urine Color Yellow (Yellow); Urobilinogen Urine 0.2 mg/dL (Negative)
[2024-09-02 13:41] LABS: Bacteria Urine None Seen /hpf; Hyaline Casts Urine 0-4 /lpf; RBC Urine 0-2 /hpf (0-2); Squamous Epithelial Cell Urine 0-5 /hpf (0-5); WBC Urine 0-5 /hpf (0-5)
[2024-09-02 14:55] LABS: Troponin 5 6HR 8.78 ng/L (0-10)
[2024-09-02 14:56] LABS: Troponin 5 6HR Delta -1.22 ng/L (0-12)
--- NOTE | 2024-09-02 15:21 | ECG_ITS ---
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 Measurements Intervals [place] Rate: 71 P: 48 CT: 140 QRS: -58 QRSD: 118 T: 68 QT: 408 QTc: 445 Interpretive Statements SINUS RHYTHM PATTERN CONSISTENT WITH PULMONARY DISEASE LEFT ANTERIOR FASCICULAR BLOCK [QRS AXIS <= -45, QR IN I, RS IN II] LEFT VENTRICULAR HYPERTROPHY AND ST-T CHANGE [VOLTAGE CRITERIA PLUS ST/T ABNORMALITY] POSSIBLE SEPTAL MYOCARDIAL INFARCTION , OF INDETERMINATE AGE [30 ms Q WAVE IN V1/V2] Compared to ECG 09/02/2024 10:27:08 ST (T wave) deviation now present Myocardial infarct finding still present Electronically Signed On 09-02-2024 22:45:35 CDT by Lorelei Lucas M.D. [id number]
[2024-09-02 15:49] LABS: Adenovirus Not Detected (NOT DETECT); Chlamydia Pneumoniae Not Detected (NOT DETECT); Coronavirus 229E,HKU1,NL63,OC4 Not Detected (NOT DETECT); Human Metapneumovirus Not Detected (NOT DETECT); Human Rhinovirus/Enterovirus Not Detected (NOT DETECT); Influenza A Not Detected (NOT DETECT); Influenza A H1 Not Detected (NOT DETECT); Influenza A H1-2009 Not Detected (NOT DETECT); Influenza A H3 Not Detected (NOT DETECT); Influenza B Not Detected (NOT DETECT); Mycoplasma Pneumoniae Not Detected (NOT DETECT); Parainfluenza Virus Type 1 Not Detected (NOT DETECT); Parainfluenza Virus Type 2 Not Detected (NOT DETECT); Parainfluenza Virus Type 3 Not Detected (NOT DETECT); Parainfluenza Virus Type 4 Not Detected (NOT DETECT); Respiratory Syncytial Virus A Not Detected (NOT DETECT); Respiratory Syncytial Virus B Not Detected (NOT DETECT); SARS-COV-2 Not Detected (NOT DETECT)
--- NOTE | 2024-09-02 17:53 | PC.NURSE ---
Patient presents to C[facility] from ED at 1736 via a bed. Patient walked from hallway into room with no assistance.
[2024-09-02 17:54] LABS: Glucose Point of Care 94 mg/dL (70-110)
[2024-09-02] MEDS: enoxaparin 40 mg/0.4 mL Syringe SUBCUT (18:20)
[2024-09-02] MEDS: pantoprazole DR 40 mg Tablet PO (18:20)
[2024-09-02] MEDS: gabapentin 300 mg Capsule PO (18:21)
[2024-09-02 20:22] LABS: Glucose Point of Care 169 mg/dL (70-110)
[2024-09-02] MEDS: ipratropium-albuterol 3 mL Neb INHALATION (20:42)
[2024-09-02] MEDS: budesonide 0.5 mg/2 mL Neb INHALATION (20:43)
[2024-09-02] MEDS: insulin lispro 100 unit/1 mL SUBCUT (20:45)
[2024-09-03] VITALS (18 sets, daily range): BP systolic 108–135; BP diastolic 50–78; PULSE 57–117; RESP 13–24; TEMP 36.8–37.4; O2SAT 92–98
[2024-09-03 02:43] LABS: Basophils % 0.4 %; Eosinophils # 0.1 10^3/uL (0.0-0.8); Eosinophils % 0.8 %; Hematocrit 42.1 % (36-47); Lymphocytes # 0.9 10^3/uL (0.8-4.8); Lymphocytes % 11.8 %; Mean Corpuscular HGB Conc 31.6 g/dL (30-55); Mean Corpuscular Hemoglobin 29.4 pg (27-33); Mean Corpuscular Volume 93.1 fl (85-98); Mean Platelet Volume 9.2 fL (7.4-10.4); Monocytes # 1.1 10^3/uL (0.2-0.9); Neutrophils # 5.76 10^3/uL (1.8-7.7); Neutrophils % 72.4 %; Nucleated Red Blood Cells % 0 %; Platelet Count 263 10^3/cmm (157-399); Red Blood Count 4.52 10^6/uL (3.85-5.65); Red Cell Distribution Width 14.3 % (12.1-15.1); White Blood Count 7.95 10^3/uL (3.29-11.43)
[2024-09-03 03:13] LABS: Alanine Aminotransferase 61 U/L (0-33); Albumin Level 4.5 g/dL (3.5-5.2); Alkaline Phosphatase 52 U/L (35-105); Anion Gap 16.1 (5-19); Aspartate Amino Transferase 35 U/L (0-32); Blood Urea Nitrogen 22 mg/dL (8-23); Carbon Dioxide 28 mmol/L (22-29); Chloride 102 mmol/L (98-107); Creatinine Clr Calc Pharmacy 67.6217; Glucose 105 mg/dL (65-115); Magnesium 2.1 mg/dL (1.7-2.3); Osmolality Calculated 298 mOsm/kg (285-295); Potassium 4.1 mmol/L (3.5-5.1); Sodium 142 mmol/L (136-145); Total Bilirubin 0.2 mg/dL (0.15-1.2); Total Protein 7.5 g/dL (6.6-8.7)
--- NOTE | 2024-09-03 06:27 | USCV_ITS ---
Jaye Jones Age: 63 Gender: F : 1960 Exam Date: 09/03/2024 09:52 Ordering Phys: Rishabh You MD Technologist: Felice Branham Exam Location: [facility] – [place], [place] Indication: edema, chest pain BP: 135 / 65 HR: 76 Rhythm: Sinus Technical Quality: Adequate MEASUREMENTS (Male / Female) Normal Values 2D ECHO LV Diastolic Diameter PLAX 3.5 cm 4.2 - 5.9 / 3.9 - 5.3 cm IVS Diastolic Thickness 1.4 cm 0.6 - 1.0 / 0.6 - 0.9 cm IVS Systolic Thickness 1.7 cm LVPW Diastolic Thickness 2.0 cm 0.6 - 1.0 / 0.6 - 0.9 cm LVPW Systolic Thickness 2.1 cm LVOT Diameter 2.0 cm LV Ejection Fraction 2D Teich 21.3 % LV Ejection Fraction MOD 4C 53.1 % LV Ejection Fraction MOD 2C 51.0 % LV Ejection Fraction 2C AL 52.0 % LA Diameter 3.0 cm RA Systolic Volume 4C AL 26.9 ml RA Systolic Volume 4C MOD 24.9 ml LA Sys Volume AL 35.4 cm cubed LA Sys Volume Index AL 17.3 cm cubed/m squared Aorta at Sinotubular Diameter 2.4 cm IVC Diameter 1.5 cm M-MODE LA Ao Ratio MM 1.7 AV Cusp Separation MM 1.7 cm DOPPLER AV Peak Velocity 157.7 cm/s LVOT Peak Velocity 80.0 cm/s AV Area Cont Eq vti 1.7 cm squared AV Area Cont Eq pk 1.6 cm squared MV Peak Velocity 116.0 cm/s MV Area PHT 3.4 cm squared Mitral E to A Ratio 0.7 TV Peak Velocity 212.3 cm/s TR Peak Velocity 277.0 cm/s TR Peak Gradient 30.7 mmHg TR Mean Velocity 239.0 cm/s TR Mean Gradient 23.6 mmHg TR Velocity Time Integral 81.3 cm PV Peak Velocity 114.0 cm/s RV Ejection Time 0.3 s FINDINGS Left Ventricle Left ventricle is normal in size. LV systolic function is normal with EF 50 to 55%. Septal motion consistent with conduction abnormality. Grade 1 diastolic dysfunction Right Ventricle Normal in size and function Right Atrium Normal in size Left Atrium Normal in size Mitral Valve Structurally normal mitral valve. Aortic Valve Structurally normal aortic valve. No significant stenosis or regurgitation. Tricuspid Valve Mild tricuspid regurgitation. Pulmonary artery systolic pressure is normal. Pulmonic Valve Not well visualized Pericardium Normal Aorta Normal in size IVC Appears to be normal CONCLUSIONS LV systolic function is normal with EF of 50-55% Grade 1 diastolic dysfunction Mild tricuspid regurgitation No comparison studies are available. Kevan Jernigan MD (Electronically Signed) Final Date: 03 September 2024 13:19 S
[2024-09-03 06:35] LABS: Glucose Point of Care 106 mg/dL (70-110)
[2024-09-03 06:35] LABS: Glucose Point of Care 98 mg/dL (70-110)
[2024-09-03] MEDS: pantoprazole DR 40 mg Tablet PO ×2 (08:13→18:04)
[2024-09-03] MEDS: predniSONE 5 mg Tablet 2.5 MG PO (08:14)
[2024-09-03] MEDS: aspirin 81 mg EC Tablet PO (08:14)
[2024-09-03] MEDS: gabapentin 300 mg Capsule PO ×2 (08:14→18:04)
[2024-09-03] MEDS: montelukast sodium 10 mg Tablet PO (08:14)
[2024-09-03] MEDS: hydroxychloroquine 200 mg Tablet 400 MG PO (08:15)
[2024-09-03 12:51] LABS: Glucose Point of Care 118 mg/dL (70-110)
--- NOTE | 2024-09-03 14:16 | P.PN_ITS ---
Subjective 2 Subjective: Seen this morning. Currently not having any chest pain. Her chest pain did get relieved with nitro at first. Vitals/I&O/Wt Last Vital Signs Temp 99.3 F 09/03/24 12:00 Pulse 75 09/03/24 12:00 Resp 16 09/03/24 12:00 BP 123/78 09/03/24 12:00 Pulse Ox 97 09/03/24 12:00 O2 Del Method Room Air 09/03/24 12:00 09/02/24 09/03/24 09/03/24 22:59 06:59 14:59 Intake Total 360 / 360 360 / 360 Output Total 300 / 300 Balance 360 / 360 -300 / 60 360 / 360 Weight last 48 hrs Weight 94.8 kg Weight 74.389 kg Weight 72.575 kg Physical Exam 2 Narrative: General: No acute distress HEENT: Atraumatic normocephalic. Pupils equally round. Oropharynx clear Neck is supple Cardiovascular regular rate and rhythm, heart sounds distant Lungs clear no wheezing or crackles Abdomen is soft obese nontender with positive bowel sounds. Extremities 1+ edema bilaterally. No cyanosis or clubbing Skin no rash Neuro no focal deficits Data 09/03/24 02:23 09/03/24 02:23 A&P Assessment and plan (1) Chest pain: Patient presents with ill-defined chest discomfort. She gives me more history of palpitations, but to the emergency department she is given history of pressure. Certainly gives both of us a history of some discomfort into her upper back. She cannot really qualify the discomfort. Either way, this is better. Differential is a large. Enzymes do not indicate an PA, but angina is not completely excluded. Also cannot exclude aorta abnormalities, CHF, PE, musculoskeletal pain, anxiety, reflux, etc. For now we will go ahead and do a CTA of her chest secondary to her chest discomfort radiating to her back associated with shortness of breath. With her cardiac enzyme, and EKG without any acute findings, I am not going to anticoagulate her at this time other than DVT prophylaxis. Will await for the studies first as she has no significant discomfort now. Will give Tylenol by mouth Okay to give aspirin, and daily until etiology of problem is investigated further (2) Palpitations: Check TSH Magnesium level next telemetry (3) Edema: Lasix 40 mg IV x 1. Reassessment need for more diuretic in the morning Check BNP Echocardiogram Venous duplex UA with micro (4) Transaminitis: Hepatitis panel Recheck tomorrow (5) Seronegative rheumatoid arthritis of both hands: Continue prednisone, hydroxychloroquine. Note that she is also on methotrexate and tofacitinib. Hold these currently. Plan Diabetes mellitus. Sliding scale insulin History of asthma. Budesonide twice daily, DuoNeb as needed. No evidence of asthma exacerbation currently. Multiple other medical problems as outlined in past medical history Full code Lovenox for DVT prophylaxis 09/03 Patient is a poor historian. CTA chest negative for any acute pathology Currently chest pain-free Troponins negative x 3. Echo complete. EF 50 to 55% grade 1 diastolic dysfunction. No wall motion abnormalities. ? Patient is chest pain does sound like it is atypical however it did relieve with nitro. Patient is a poor historian. I will go ahead and order a stress test for Thursday. If any abnormalities and stress testing will consider cardiology consultation. Continue to monitor on telemetry. Attestations 2 Medical Necessity Statement*: stress test thursday Diagnoses Chest pain R07.9 Palpitations R00.2 Edema R60.9 Transaminitis R74.01 Seronegative rheumatoid arthritis of both hands M06.041; M06.042
--- NOTE | 2024-09-03 14:23 | ECG_ITS ---
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 Interpretive Statements PROCEDURE: At the baseline, the EKG revealed normal sinus rhythm with poor R wave progression. Possible old septal NC. Nonspecific IVCD. Left anterior fascicular block.. The baseline heart was 70 bpm with a blood pressue of 122/66 mm of Hg Lexiscan was infused over a period of 20 seconds. A total of 0.4 milligrams of Lexiscan was infused. The stress phase was continued for a total of 5 minutes. Heart rate at the end of the stress phase was 102 bpm with a blood pressure 174/70 mm of Hg. The EKG at the peak infusion revealed no significant changes. Sestamibi was injected 20 seconds after the Lexiscan infusion. Heart rate at the end of the recovery phase was 88 bpm with a blood pressure of 154/69 mm of Hg. CONCLUSION: 1. No significant EKG changes with the LexiScan infusion 2. No LexiScan induced chest pain or cardiac arrhythmia 3. Normal blood pressure and heart rate response 4. Sestamibi/sestamibi perfusion scan pending; see separate report. Lung unchanged pre/post procedure; Intraprocedure shortess of breath; Symptoms resoled by discharge Electronically Signed On 09-11-2024 18:23:46 CDT by Lorelei Lucas M.D. [id number]
[2024-09-03] MEDS: ipratropium-albuterol 3 mL Neb INHALATION ×2 (15:06→19:21)
[2024-09-03 16:57] LABS: Glucose Point of Care 199 mg/dL (70-110)
[2024-09-03] MEDS: insulin lispro 100 unit/1 mL SUBCUT ×2 (18:03→20:57)
[2024-09-03] MEDS: enoxaparin 40 mg/0.4 mL Syringe SUBCUT (18:04)
[2024-09-03] MEDS: budesonide 0.5 mg/2 mL Neb INHALATION (19:21)
[2024-09-03 20:36] LABS: Glucose Point of Care 143 mg/dL (70-110)
[2024-09-04] VITALS (17 sets, daily range): BP systolic 105–136; BP diastolic 50–78; PULSE 67–89; RESP 10–23; TEMP 36.6–37; O2SAT 91–99
[2024-09-04 03:58] LABS: Basophils % 0.4 %; Eosinophils # 0.1 10^3/uL (0.0-0.8); Eosinophils % 1.4 %; Hematocrit 36.8 % (36-47); Lymphocytes # 1.5 10^3/uL (0.8-4.8); Lymphocytes % 17.9 %; Mean Corpuscular HGB Conc 31.8 g/dL (30-55); Mean Corpuscular Hemoglobin 29.6 pg (27-33); Mean Corpuscular Volume 93.2 fl (85-98); Mean Platelet Volume 9.1 fL (7.4-10.4); Monocytes # 1.1 10^3/uL (0.2-0.9); Monocytes % 13.2 %; Neutrophils # 5.53 10^3/uL (1.8-7.7); Neutrophils % 66.6 %; Nucleated Red Blood Cells % 0 %; Platelet Count 242 10^3/cmm (157-399); Red Blood Count 3.95 10^6/uL (3.85-5.65); Red Cell Distribution Width 14.4 % (12.1-15.1); White Blood Count 8.31 10^3/uL (3.29-11.43)
[2024-09-04 04:20] LABS: Anion Gap 16.1 (5-19); Blood Urea Nitrogen 18 mg/dL (8-23); Calcium 8.3 mg/dL (8.5-10.5); Carbon Dioxide 24 mmol/L (22-29); Chloride 103 mmol/L (98-107); Creatinine Clr Calc Pharmacy 69.9724; Glucose 111 mg/dL (65-115); Osmolality Calculated 291 mOsm/kg (285-295); Potassium 4.1 mmol/L (3.5-5.1); Sodium 139 mmol/L (136-145)
[2024-09-04 06:48] LABS: Glucose Point of Care 106 mg/dL (70-110)
[2024-09-04] MEDS: hydroxychloroquine 200 mg Tablet 400 MG PO (08:31)
[2024-09-04] MEDS: aspirin 81 mg EC Tablet PO (08:31)
[2024-09-04] MEDS: pantoprazole DR 40 mg Tablet PO ×2 (08:31→17:15)
[2024-09-04] MEDS: gabapentin 300 mg Capsule PO ×2 (08:31→17:14)
[2024-09-04] MEDS: montelukast sodium 10 mg Tablet PO (08:31)
[2024-09-04] MEDS: predniSONE 5 mg Tablet 2.5 MG PO (08:32)
[2024-09-04] MEDS: ipratropium-albuterol 3 mL Neb INHALATION ×2 (08:35→22:50)
[2024-09-04] MEDS: budesonide 0.5 mg/2 mL Neb INHALATION ×2 (08:35→22:50)
[2024-09-04 12:15] LABS: Glucose Point of Care 97 mg/dL (70-110)
--- NOTE | 2024-09-04 12:53 | P.PN_ITS ---
Subjective 2 Subjective: Seen today. Denies chest pain Vitals/I&O/Wt Last Vital Signs Temp 98.2 F 09/04/24 12:00 Pulse 79 09/04/24 12:00 Resp 20 H 09/04/24 12:00 BP 114/68 09/04/24 12:00 Pulse Ox 94 09/04/24 12:00 O2 Del Method Room Air 09/04/24 12:00 09/03/24 09/04/24 09/04/24 22:59 06:59 14:59 Intake Total 600 / 1200 120 / 1320 240 / 240 Balance 600 / 1200 120 / 1320 240 / 240 Weight last 48 hrs Weight 76.975 kg Weight 94.8 kg Weight 74.389 kg Physical Exam 2 Narrative: General: No acute distress Cardiovascular regular rate and rhythm, heart sounds distant Lungs clear no wheezing or crackles Abdomen is soft obese nontender Extremities no edema bilateral extremities Neuro no focal deficits Data 09/04/24 03:47 09/04/24 03:47 A&P Assessment and plan (1) Chest pain: Patient presents with ill-defined chest discomfort. She gives me more history of palpitations, but to the emergency department she is given history of pressure. Certainly gives both of us a history of some discomfort into her upper back. She cannot really qualify the discomfort. Either way, this is better. Differential is a large. Enzymes do not indicate an MA, but angina is not completely excluded. Also cannot exclude aorta abnormalities, CHF, PE, musculoskeletal pain, anxiety, reflux, etc. For now we will go ahead and do a CTA of her chest secondary to her chest discomfort radiating to her back associated with shortness of breath. With her cardiac enzyme, and EKG without any acute findings, I am not going to anticoagulate her at this time other than DVT prophylaxis. Will await for the studies first as she has no significant discomfort now. Will give Tylenol by mouth Okay to give aspirin, and daily until etiology of problem is investigated further (2) Palpitations: Check TSH Magnesium level next telemetry (3) Edema: Lasix 40 mg IV x 1. Reassessment need for more diuretic in the morning Check BNP Echocardiogram Venous duplex UA with micro (4) Transaminitis: Hepatitis panel Recheck tomorrow (5) Seronegative rheumatoid arthritis of both hands: Continue prednisone, hydroxychloroquine. Note that she is also on methotrexate and tofacitinib. Hold these currently. Plan Diabetes mellitus. Sliding scale insulin History of asthma. Budesonide twice daily, DuoNeb as needed. No evidence of asthma exacerbation currently. Multiple other medical problems as outlined in past medical history Full code Lovenox for DVT prophylaxis 09/04 Patient is a poor historian. CTA chest negative for any acute pathology Currently chest pain-free Troponins negative x 3. Echo complete. EF 50 to 55% grade 1 diastolic dysfunction. No wall motion abnormalities. ? Patient is chest pain does sound like it is atypical however it did relieve with nitro. Patient is a poor historian. I will go ahead and order a stress test for Thursday. If any abnormalities and stress testing will consider cardiology consultation. Continue to monitor on telemetry. No change in plan from prior day. Continue as listed above. Stress test in AM. Attestations 2 Medical Necessity Statement*: stress test thursday Diagnoses Chest pain R07.9 Palpitations R00.2 Edema R60.9 Transaminitis R74.01 Seronegative rheumatoid arthritis of both hands M06.041; M06.042
[2024-09-04 16:51] LABS: Glucose Point of Care 111 mg/dL (70-110)
[2024-09-04] MEDS: enoxaparin 40 mg/0.4 mL Syringe SUBCUT (17:14)
[2024-09-04 20:45] LABS: Glucose Point of Care 231 mg/dL (70-110)
[2024-09-04] MEDS: insulin lispro 100 unit/1 mL SUBCUT (21:27)
[2024-09-05] VITALS (16 sets, daily range): BP systolic 106–159; BP diastolic 49–92; PULSE 64–93; RESP 11–23; TEMP 36.5–37; O2SAT 89–99
[2024-09-05 04:35] LABS: Basophils % 0.5 %; Eosinophils # 0.2 10^3/uL (0.0-0.8); Eosinophils % 3.1 %; Hematocrit 36.6 % (36-47); Lymphocytes # 1.3 10^3/uL (0.8-4.8); Lymphocytes % 16.9 %; Mean Corpuscular HGB Conc 30.9 g/dL (30-55); Mean Corpuscular Hemoglobin 29.4 pg (27-33); Mean Corpuscular Volume 95.3 fl (85-98); Monocytes # 1.2 10^3/uL (0.2-0.9); Monocytes % 15.6 %; Neutrophils # 4.87 10^3/uL (1.8-7.7); Neutrophils % 63.5 %; Nucleated Red Blood Cells % 0 %; Platelet Count 235 10^3/cmm (157-399); Red Blood Count 3.84 10^6/uL (3.85-5.65); Red Cell Distribution Width 14.4 % (12.1-15.1); White Blood Count 7.68 10^3/uL (3.29-11.43)
[2024-09-05 04:51] LABS: Blood Urea Nitrogen 17 mg/dL (8-23); Calcium 8.2 mg/dL (8.5-10.5); Carbon Dioxide 26 mmol/L (22-29); Chloride 105 mmol/L (98-107); Creatinine Clr Calc Pharmacy 63.6113; Glomerular Filtration Rate 50.2 mL/min (90-130); Glucose 109 mg/dL (65-115); Osmolality Calculated 290 mOsm/kg (285-295); Sodium 139 mmol/L (136-145)
[2024-09-05 06:49] LABS: Glucose Point of Care 97 mg/dL (70-110)
[2024-09-05] MEDS: regadenoson 0.4 Mg/5 ml Syringe IVP (07:31)
[2024-09-05] MEDS: aspirin 81 mg EC Tablet PO (09:11)
[2024-09-05] MEDS: pantoprazole DR 40 mg Tablet PO ×2 (09:11→17:54)
[2024-09-05] MEDS: gabapentin 300 mg Capsule PO ×2 (09:11→17:54)
[2024-09-05] MEDS: montelukast sodium 10 mg Tablet PO (09:11)
[2024-09-05] MEDS: hydroxychloroquine 200 mg Tablet 400 MG PO (09:11)
[2024-09-05] MEDS: predniSONE 5 mg Tablet 2.5 MG PO (09:11)
[2024-09-05] MEDS: budesonide 0.5 mg/2 mL Neb INHALATION ×2 (09:58→22:47)
[2024-09-05] MEDS: ipratropium-albuterol 3 mL Neb INHALATION ×2 (09:58→22:47)
[2024-09-05 12:51] LABS: Glucose Point of Care 109 mg/dL (70-110)
--- NOTE | 2024-09-05 13:10 | P.CONIM_ITS ---
Providers/Reason For Consult 2 Consulting Physician/Specialty*: EMIL Lucas MD/cardiology Reason for Consult*: Patient with chest pain/abnormal Myocardial perfusion imaging Requesting Physician: Dr. De La Cruz Attending Physician: Zaina De La Cruz MD Primary Care Provider: Cody Ortega DO History of Present Illness History of Present Illness Jaye Jones is a 63 year old female with a history of diabetes, dyslipidemia, is present with complaints of chest pain/pain between the shoulder blades. She had a Myocardial perfusion imaging today which he was found to be abnormal. Cardiology consult is requested for further cardiac evaluation and recommendations. This patient is a very poor historian. She apparently has been in her baseline state of health up until last Thursday morning when she started having palpitation on the right side of the chest. Accordingto the patient, the fluttering in the chest mainly lasted for 2 hours or so and then gradually eased off. Couple of hours later, she again started having the similar symptoms. This time she also had pain between the shoulder blades. The intensity of the pain was moderate to severe. Patient has a history of back pain off and on for years. According to her at this time the pain was more severe. She did not have any associated shortness of breath. No nausea or vomiting. No sweating. No dizziness or syncopal episodes. No other associated symptoms or radiation of pain. Patient has no previous history for any coronary artery disease, myocardial infarction or congestive heart failure. She has been fairly compliant with medications. She was taking some statin drugs but because of the muscle pains, had to be discontinued Denies any history of smoking abuse, alcohol abuse or any other substance abuse. Some of her uncles in the family had heart problems. But the patient is not able to give any details. No other significant family history. Review of Systems 2 Narrative: CONSTITUTIONAL: No fever or chills. EYES: No blurring of vision or other visual disturbances lately. ENT: No hoarseness of voice, auditory disturbances or sore throat. CARDIOVASCULAR: As mentioned above. RESPIRATORY: No significant cough. GASTROINTESTINAL: No hematemesis or melena. GENITOURINARY: No dysuria or hematuria. INTEGUMENTARY: No skin rashes or history of skin cancer. NEURO: No transient ischemic attacks or amaurosis. PSYCHIATRIC: No history of psychosis or major depression. HEMATOLOGIC: No bleeding disorders or significant anemia. ENDOCRINE: History of diabetes as mentioned above MUSCULOSKELETAL: No recent joint pain or swelling. ALLERGY/IMMUNOLOGY: As mentioned above. Medications/Allergies Home Medications Medication Instructions Recorded Confirmed Last Taken Type albuterol sulfate 90 mcg/actuation 2 puff inhalation Q6H PRN 07/11/20 09/02/24 Unknown History aerosol inhaler (Ventolin HFA) restricted breathing aspirin 81 mg tablet,delayed 81 mg PO DAILY 07/11/20 09/02/24 09/01/24 History release metformin 500 mg tablet 500 mg PO DAILY 07/11/20 09/02/24 09/01/24 History geriatric [id number] 1 tab PO DAILY 07/12/20 09/02/24 09/01/24 History montelukast 10 mg tablet 10 mg PO DAILY 07/12/20 09/02/24 09/01/24 History (Singulair) diclofenac sodium 1 % topical gel See Rx Instructions .Route 12/31/23 09/02/24 Unknown Rx .COMPLEX #100 grams gabapentin 300 mg capsule 300 mg PO BID #60 caps 08/04/24 09/02/24 09/01/24 Rx methotrexate sodium 2.5 mg tablet See Rx Instructions PO .Q7days #90 08/04/24 09/02/24 08/26/24 Rx tabs pantoprazole 40 mg tablet,delayed 40 mg PO DAILY #90 tabs 08/04/24 09/02/24 09/01/24 Rx release prednisone 2.5 mg tablet 2.5 mg PO DAILY #90 tabs 08/04/24 09/02/24 09/01/24 Rx tofacitinib 5 mg tablet (Xeljanz) 5 mg PO BID #60 tabs 08/04/24 09/02/24 09/01/24 Rx hydroxychloroquine 200 mg tablet 400 mg PO DAILY 09/02/24 09/02/24 09/01/24 History Allergies Allergy/AdvReac Type Severity Reaction Status Date / Time buspirone [From BuSpar] Allergy Unknown Verified 09/02/24 08:31 Sulfa (Sulfonamide Allergy Unknown Verified 09/02/24 08:31 Antibiotics) unknown abx Allergy ALGY-Hives Uncoded 09/02/24 08:32 Current Medications Generic Name Dose Route Start Last Admin Trade Name Freq PRN Reason Stop Dose Admin Albuterol/Ipratropium 3 ml 10/11/24 17:43 09/05/24 09:58 Ipratropium-Albuterol 3 Ml Neb INHALATION 3 ml Q6H PRN Administration SHORTNESS OF BREATH Aspirin 81 mg 09/03/24 09:00 09/05/24 09:11 Aspirin 81 Mg Ec Tablet PO 81 mg DAILY LOTTIE Administration Budesonide 0.5 mg 09/02/24 20:00 09/05/24 09:58 Budesonide 0.5 Mg/2 Ml Neb INHALATION 0.5 mg BID.RESPIRATORY LOTTIE Administration Enoxaparin Sodium 40 mg 09/02/24 18:00 09/04/24 17:14 Enoxaparin 40 Mg/0.4 Ml Syringe SUBCUT 40 mg Q24H LOTTIE Administration Gabapentin 300 mg 09/02/24 18:00 09/05/24 09:11 Gabapentin 300 Mg Capsule PO 300 mg BID LOTTIE Administration Hydroxychloroquine Sulfate 400 mg 09/03/24 09:00 09/05/24 09:11 Hydroxychloroquine 200 Mg Tablet PO 400 mg DAILY LOTTIE Administration Insulin Human Lispro 0 unit 09/02/24 18:00 09/05/24 12:40 Insulin Lispro 100 Unit/1 Ml SUBCUT Not Given WM&BEDTIME LOTTIE Protocol Montelukast Sodium 10 mg 09/03/24 09:00 09/05/24 09:11 Montelukast Sodium 10 Mg Tablet PO 10 mg DAILY LOTTIE Administration Pantoprazole Sodium 40 mg 09/02/24 18:00 09/05/24 09:[address] 40 Mg Tablet PO 40 mg BID LOTTIE Administration Prednisone 2.5 mg 09/03/24 09:00 09/05/24 09:11 Prednisone 5 Mg Tablet PO 2.5 mg DAILY LOTTIE Administration PFSH Acute 2 PFSH: Medical History Seronegative rheumatoid arthritis of both hands Cervical radiculopathy Undifferentiated connective tissue disease Elevated C-reactive protein (CRP) Fibromyalgia Immunization counseling High risk medication use Inflammatory arthritis Positive OBDULIO (antinuclear antibody) GERD (gastroesophageal reflux disease) Joint pain History of hypercholesterolemia Surgical History History of delivery History of cholecystectomy Family History Other Cancer Diabetes Hypertension Rheumatoid arthritis Stroke Denies family history of Lupus CAD (coronary artery disease) Chronic kidney disease (CKD) Social History Smoking and tobacco/nicotine status: former use of tobacco/nicotine Alcohol intake: never Substance/Drug Use: never Vitals/I&O/Wt Last Vital Signs Temp 98.2 F 09/05/24 12:00 Pulse 80 09/05/24 12:00 Resp 23 H 09/05/24 12:00 BP 124/75 09/05/24 12:00 Pulse Ox 97 09/05/24 12:00 O2 Del Method Room Air 09/05/24 12:00 09/04/24 09/05/24 09/05/24 22:59 06:59 14:59 Intake Total 720 / 1200 960 / 960 Balance 720 / 1200 960 / 960 Weight last 48 hrs Weight 169 lb 12.8 oz Weight 169 lb 11.2 oz Physical Exam 2 Narrative: Yeah GENERAL: The patient is alert and oriented times three. Not in any acute distress. HEENT: No significant pallor, icterus or lymphadenopathy.Oral cavity: There are no mucous membrane lesions. NECK: Trachea appears to be central. No masses noted. No JVD or thyromegaly appreciated. RESPIRATORY: Chest is symmetrical. No intercostals muscle retraction or any accessory muscle activation. There is no chest wall tenderness. Breath sounds are heard bilaterally. No rales or rhonchi heard. No evidence of any consolidation. BREASTS: Deferred. HEART: The heart sounds are normal. No S3 or S4. No significant murmurs. No pericardial rub ABDOMEN: No vessel pulsations or distention. No tenderness. No organomegaly appreciated. Bowel sounds are normally heard. : Deferred. RECTAL: Deferred. LYMPHATIC: No lymphadenopathy noted in the neck. EXTREMITIES: No edema or cyanosis. No clubbing. MUSCULOSKELETAL: No acute joint deformities or swelling SKIN: There are no significant rashes or ecchymosis NEUROPSYCHIATRIC: The patient is alert and oriented x3. Appears to be in a good mood. No tremors or rigidity noted. Data 09/05/24 04:27 09/05/24 04:27 Other Labs: Laboratory Last Values WBC 7.68 10^3/uL (3.29-11.43) 09/05/24 04: RBC 3.84 10^6/uL (3.85-5.65) L 09/05/24 04:27 Hgb 11.30 g/dL (11.27-16.99) 09/05/24 04:27 Hct 36.6 % (36-47) 09/05/24 04: MCV 95.3 fl (85-98) 09/05/24 04: MCH 29.4 pg (27-33) 09/05/24 04:27 MCHC 30.9 g/dL (30-55) 09/05/24 04:27 RDW 14.4 % (12.1-15.1) 09/05/24 04:27 Plt Count 235 10^3/cmm (157-399) 09/05/24 04:27 MPV 9.0 fL (7.4-10.4) 09/05/24 04:27 Neut % (Auto) 63.5 % 09/05/24 04:27 Lymph % (Auto) 16.9 % 09/05/24 04:27 [place] % (Auto) 15.6 % 09/05/24 04:27 Eos % (Auto) 3.1 % 09/05/24 04:27 Baso % (Auto) 0.5 % 09/05/24 04:27 Neut # (Auto) 4.87 10^3/uL (1.8-7.7) 09/05/24 04:27 Lymph # (Auto) 1.3 10^3/uL (0.8-4.8) 09/05/24 04:27 [place] # (Auto) 1.2 10^3/uL (0.2-0.9) H 09/05/24 04:27 Eos # (Auto) 0.2 10^3/uL (0.0-0.8) 09/05/24 04:27 Baso # (Auto) 0.0 10^3/uL (0.0-0.1) 09/05/24 04:27 Nucleated RBC % (auto) 0 % 09/05/24 04:27 Nucleated RBCs # 0.0 /100WBC 09/05/24 04:27 Sodium 139 mmol/L (136-145) 09/05/24 04:27 Potassium 4.0 mmol/L (3.5-5.1) 09/05/24 04:27 Chloride 105 mmol/L (98-107) 09/05/24 04:27 Carbon Dioxide 26 mmol/L (22-29) 09/05/24 04:27 Anion Gap 12.0 (5-19) 09/05/24 04:27 BUN 17 mg/dL (8-23) 09/05/24 04:27 Creatinine 1.1 mg/dL (0.5-0.9) H 09/05/24 04:27 GFR Calculation 50.2 mL/min (90-130) L 09/05/24 04:27 Glucose 109 mg/dL (65-115) 09/05/24 04:27 POC Glucose 109 mg/dL (70-110) 09/05/24 12:25 Calculated Osmolality 290 mOsm/kg (285-295) 09/05/24 04:27 Calcium 8.2 mg/dL (8.5-10.5) L 09/05/24 04:27 Magnesium 2.0 mg/dL (1.7-2.3) 09/05/24 04:27 Total Bilirubin 0.2 mg/dL (0.15-1.2) 09/03/24 02:23 AST 35 U/L (0-32) H 09/03/24 02:23 ALT 61 U/L (0-33) H 09/03/24 02:23 Alkaline Phosphatase 52 U/L (35-105) 09/03/24 02:23 Troponin T Baseline 10 ng/L (0-10) 09/02/24 08:10 Troponin T 120 Minute 8.10 ng/L (0-10) 09/02/24 10:12 Delta Troponin T -1.90 ABS# (0-10) L 09/02/24 10:12 Troponin T Hi Sens 6Hr 8.78 ng/L (0-10) 09/02/24 14:29 Troponin T Hi Sens 6Hr Delta -1.22 ng/L (0-12) L 09/02/24 14:29 NT-Pro-B Natriuret Pep 182 pg/mL (0-125) H 09/02/24 08:10 Total Protein 7.5 g/dL (6.6-8.7) 09/03/24 02:23 Albumin 4.5 g/dL (3.5-5.2) 09/03/24 02:23 Globulin 3.0 g/dL (1.3-4.6) 09/03/24 02:23 TSH 1.48 uIU/mL (0.27-4.20) 09/02/24 10:12 Urine Color Yellow (Yellow) 09/02/24 13:13 Urine Appearance Clear (CLEAR) 09/02/24 13:13 Urine pH 7.0 (5-7) 09/02/24 13:13 Ur Specific [place] 1.021 (1.005-1.030) 09/02/24 13:13 Urine Protein Negative (Negative) 09/02/24 13:13 Urine Glucose (UA) Negative (Normal) 09/02/24 13:13 Urine Ketones Negative (Negative) 09/02/24 13:13 Urine Blood Negative (Negative) 09/02/24 13:13 Urine Nitrate Negative (Negative) 09/02/24 13:13 Urine Bilirubin Negative (Negative) 09/02/24 13:13 Urine Urobilinogen 0.2 mg/dL (Negative) 09/02/24 13:13 Ur Leukocyte Esterase Negative (Negative) 09/02/24 13:13 Urine RBC 0-2 /hpf (0-2) 09/02/24 13:13 Urine WBC 0-5 /hpf (0-5) 09/02/24 13:13 Ur Squamous Epith Cells 0-5 /hpf (0-5) 09/02/24 13:13 Amorphous Sediment Not Reportable 09/02/24 13:13 Urine Bacteria None seen /hpf (NONE) 09/02/24 13:13 Hyaline Casts 0-4 /lpf H 09/02/24 13:13 Coronavirus 229E (PCR) Not detected (NOT DETECT) 09/02/24 13:40 Hepatitis A IgM Ab Non-reactive (Nonreactive) 09/02/24 08:10 Hep Bs Antigen Non-reactive (Nonreactive) 09/02/24 08:10 Hep B Core IgM Ab Non-reactive (Nonreactive) 09/02/24 08:10 Hepatitis C Antibody Non-reactive (Nonreactive) 09/02/24 08:10 SARS-CoV-2 (PCR) Not detected (NOT DETECT) 09/02/24 13:40 EKG 1: My Interpretation: The EKG showed sinus rhythm with left anterior fascicular block, poor R wave progression, possible old septal AL, features of LVH,. S1 and S2-S3 pattern may suggest pulmonary disease. Other data: Myocardial perfusion imaging on 08/26/2024 1. Myocardial perfusion imaging revealing a very small area of reversible defect in the apical lateral region, suggesting ischemia in the distribution of the left circumflex artery 2. Normal LV ejection fraction 58%. 3. LV wall motion analysis revealing no gross wall motion abnormalities. 4. Normal LV volume No similar previous studies are available for comparison A&P Assessment and plan (1) Chest pain: The pain between the shoulder blades could suggest new onset of ischemia. However the symptoms are very atypical. The Myocardial perfusion imaging revealed a very small area of reversible defect in apical lateral region, suggestive of ischemia in the distribution of the left circumflex artery. Apparently the patient is remaining stable with no recurrence of chest pain. Her echocardiogram revealed some wall motion abnormality in the septum. Qualifiers: Chest pain type: other chest pain Qualified Code(s): R07.89 - Other chest pain (2) Heart palpitations: Patient's symptom of fluttering in the chest, may suggest some form of benign tachyarrhythmia. So far there is no documented tachyarrhythmias on the monitor. This may need to be further evaluated. (3) T2DM (type 2 diabetes mellitus): The blood sugar seems to be under control. May continue on the current management. 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 She developed muscle pains with the medications in the past. Currently she is not on any statin drugs. (5) Abnormal nuclear cardiac imaging test: The implications of the abnormal Myocardial perfusion imaging was discussed with the patient and her family in detail. The area of ischemia is small. She has no ischemic symptoms at this point. The echocardiographic evidence of wall motion abnormality, could be related to repolarization abnormalities. If the patient has recurrence of chest pain, she may benefit from a cardiac catheterization. Otherwise a trial of medical therapy would be appropriate. This was discussed in detail with the patient and her family which they understood well. Patient is advised to ambulate on telemetry. Based on the clinical progress, further recommendations will be made. 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
--- NOTE | 2024-09-05 13:57 | P.PN_ITS ---
Subjective 2 Subjective: seen this morning going for stress test today. result pending. Vitals/I&O/Wt Last Vital Signs Temp 98.2 F 09/05/24 12:00 Pulse 80 09/05/24 12:00 Resp 23 H 09/05/24 12:00 BP 124/75 09/05/24 12:00 Pulse Ox 97 09/05/24 12:00 O2 Del Method Room Air 09/05/24 12:00 09/04/24 09/05/24 09/05/24 22:59 06:59 14:59 Intake Total 720 / 1200 960 / 960 Balance 720 / 1200 960 / 960 Weight last 48 hrs Weight 77.02 kg Weight 76.975 kg Physical Exam 2 Narrative: General: No acute distress Cardiovascular regular rate and rhythm, heart sounds distant Lungs clear no wheezing or crackles Abdomen is soft obese nontender Extremities no edema bilateral extremities Neuro no focal deficits Data 09/05/24 04:27 09/05/24 04:27 A&P Assessment and plan (1) Chest pain: Patient presents with ill-defined chest discomfort. She gives me more history of palpitations, but to the emergency department she is given history of pressure. Certainly gives both of us a history of some discomfort into her upper back. She cannot really qualify the discomfort. Either way, this is better. Differential is a large. Enzymes do not indicate an DC, but angina is not completely excluded. Also cannot exclude aorta abnormalities, CHF, PE, musculoskeletal pain, anxiety, reflux, etc. For now we will go ahead and do a CTA of her chest secondary to her chest discomfort radiating to her back associated with shortness of breath. With her cardiac enzyme, and EKG without any acute findings, I am not going to anticoagulate her at this time other than DVT prophylaxis. Will await for the studies first as she has no significant discomfort now. Will give Tylenol by mouth Okay to give aspirin, and daily until etiology of problem is investigated further (2) Palpitations: Check TSH Magnesium level next telemetry (3) Edema: Lasix 40 mg IV x 1. Reassessment need for more diuretic in the morning Check BNP Echocardiogram Venous duplex UA with micro (4) Transaminitis: Hepatitis panel Recheck tomorrow (5) Seronegative rheumatoid arthritis of both hands: Continue prednisone, hydroxychloroquine. Note that she is also on methotrexate and tofacitinib. Hold these currently. Plan Diabetes mellitus. Sliding scale insulin History of asthma. Budesonide twice daily, DuoNeb as needed. No evidence of asthma exacerbation currently. Multiple other medical problems as outlined in past medical history Full code Lovenox for DVT prophylaxis 09/05 Patient is a poor historian. CTA chest negative for any acute pathology Currently chest pain-free Troponins negative x 3. Echo complete. EF 50 to 55% grade 1 diastolic dysfunction. No wall motion abnormalities. ? stress testing completed, abnormal - consult cardiology Attestations 2 Medical Necessity Statement*: abnormal stress test, cardiology consulted Diagnoses Chest pain R07.9 Palpitations R00.2 Edema R60.9 Transaminitis R74.01 Seronegative rheumatoid arthritis of both hands M06.041; M06.042
--- NOTE | 2024-09-05 14:23 | NMCV_ITS ---
NM abel perf SPECT r/s* [id number] Jaye Jones Age: 63 Gender: F : 1960 Exam Date: 09/05/2024 06:20 Ordering Phys: Zaina De La Cruz MD Technologist: JOSE ALBERTO Hughes Exam Location: [facility] [place] Indications: CP STRESS TEST Please see separate stress test report in [facility] for full findings IMAGE PROTOCOL Rest/Stress 1 Lexiscan Day Radiopharmaceutical Dose (mCi) Administration Site Administered by Rest: Tc-99m 10.8 IV JOSE ALBERTO Hughes Sestamibi Stress:Tc-99m 32.6 IV JOSE ALBERTO Parsons Sestamibi Rest: 05-Sep-2024 60 Discovery 630 Stress: 05-Sep-2024 30 Discovery 630 0.4mg Lexiscan. Images obtained in supine and prone position. SPECT RESULTS Technical Quality: Good Raw Data Analysis: Normal Image Corrections: No attenuation or motion correction applied Summed Stress Score: 1 Summed Rest Score: 0 Summed Difference Score: 1 PERFUSION FINDINGS Small area of slightly decreased tracer uptake was noted in the apical lateral region with reversibility. FUNCTIONAL RESULTS (calculated via Gated SPECT) Stress Image LV EF (%): 58 Stress EDV (mL):81 TID: 0.78 Stress ESV (mL):34 FUNCTIONAL FINDINGS: Segmental wall motion analysis revealing no gross wall motion abnormalities IMPRESSIONS 1. Myocardial perfusion imaging revealing a very small area of reversible defect in the apical lateral region, suggesting ischemia in the distribution of the left circumflex artery 2. Normal LV ejection fraction 58%. 3. LV wall motion analysis revealing no gross wall motion abnormalities. 4. Normal LV volume No similar previous studies are available for comparison Dr Lorelei Lucas MD FACC (Electronically Signed) Final Date: 05 September 2024 12:20 S
[2024-09-05] MEDS: clopidogrel 75 mg Tablet PO (15:41)
[2024-09-05 17:30] LABS: Glucose Point of Care 127 mg/dL (70-110)
[2024-09-05] MEDS: enoxaparin 40 mg/0.4 mL Syringe SUBCUT (17:54)
[2024-09-05 21:01] LABS: Glucose Point of Care 140 mg/dL (70-110)
[2024-09-06] VITALS (10 sets, daily range): BP systolic 122–149; BP diastolic 50–84; PULSE 63–93; RESP 12–24; TEMP 36.4–37.1; O2SAT 90–100
[2024-09-06 03:30] LABS: Basophils # 0.1 10^3/uL (0.0-0.1); Eosinophils # 0.2 10^3/uL (0.0-0.8); Eosinophils % 2.9 %; Lymphocytes # 1.1 10^3/uL (0.8-4.8); Lymphocytes % 15.9 %; Mean Corpuscular HGB Conc 30.8 g/dL (30-55); Mean Corpuscular Hemoglobin 29.2 pg (27-33); Mean Corpuscular Volume 94.9 fl (85-98); Mean Platelet Volume 9.3 fL (7.4-10.4); Monocytes # 1.1 10^3/uL (0.2-0.9); Monocytes % 15.1 %; Neutrophils % 64.5 %; Nucleated Red Blood Cells % 0 %; Platelet Count 240 10^3/cmm (157-399); Red Cell Distribution Width 14.4 % (12.1-15.1); White Blood Count 6.97 10^3/uL (3.29-11.43)
[2024-09-06 03:49] LABS: Anion Gap 14.5 (5-19); Blood Urea Nitrogen 16 mg/dL (8-23); Calcium 8.2 mg/dL (8.5-10.5); Carbon Dioxide 24 mmol/L (22-29); Chloride 104 mmol/L (98-107); Creatinine Clr Calc Pharmacy 63.6485; Glomerular Filtration Rate 50.2 mL/min (90-130); Glucose 113 mg/dL (65-115); Osmolality Calculated 288 mOsm/kg (285-295); Potassium 4.5 mmol/L (3.5-5.1); Sodium 138 mmol/L (136-145)
[2024-09-06] MEDS: sodium chloride 0.9% 1,000 ML 50 ML IV (06:48)
[2024-09-06] MEDS: diphenhydrAMINE 50 mg Capsule PO (07:29)
[2024-09-06] MEDS: clopidogrel 300 mg Tablet PO (07:29)
--- NOTE | 2024-09-06 07:39 | PC.NURSE ---
to cardiac cath lab radiology technologist taken by staff via bed.
[2024-09-06 07:57] LABS: Glucose Point of Care 93 mg/dL (70-110)
--- NOTE | 2024-09-06 08:17 | W.PM.OPSUD ---
Surgery/Procedure H&P Update DATE OF PROCEDURE: September 06, 2024 DATE H&P PERFORMED: 09/05/24 H&P UPDATE INFORMATION: I have reviewed H&P completed within last 30 days, I have examined patient prior to procedure and No changes to prior documentation PREOP DIAGNOSIS: Suspected atherosclerotic heart disease PRIMARY INDICATION FOR PROCEDURE: Chest pain, abnormal Myocardial perfusion imaging PLANNED PROCEDURE: Operation Date: 09/06/24 08:30 Proposed Procedures p Cardiac Catheterization(Left) - Lorelei Lucas MD PATIENT REASSESSED PRIOR TO SEDATION, WITH NO CHANGE NOTED: Yes PHYSICAL EXAM: alert, oriented x 3, clear to auscultation bilaterally and regular rate & rhythm AIRWAY EVAL/ANESTHESIA PLAN: normal airway, see other exam findings, ASA III, Monitored Anesthesia, Local Anesthesia, Risks, benefits & alternatives of sedation and/or procedure discussed and Patient agrees to continue as planned
--- NOTE | 2024-09-06 08:30 | XACV_ITS ---
Exam Room: 2 Ht: 150 cm Wt: 78 kg BSA: 1.84 m2 Gender: Female : 1960 Any Known Allergies: Other Exam Priority: Routine Procedure(s): Procedure Description: Diagnostic procedure Procedure Description: Left Heart Catheterization Procedure Description: Left ventriculography Procedure Description: Coronary Angiography Lance HUITRON; Diagnostic Cath Status: Elective Diagnostic Findings * Left main is a medium caliber vessel with no significant stenotic lesions. * Left anterior descending artery is a medium caliber vessel which appears to be tapering off towards the LV apex. Mild diffuse intimal irregularities are noted in the mid and distal segment of the artery. * Left circumflex artery is a medium caliber vessel, nondominant. No severe is noted lesions were noted. * The right coronary artery is a medium caliber dominant vessel which was found to have minimal intimal irregularities in the proximal segment. No significant stenotic lesions were noted. Conclusions 1. Patient with new onset of chest pain/palpitation and shortness of breath. Multiple risk factors for coronary artery disease. Abnormal Myocardial perfusion imaging. Ongoing chest tightness and dyspnea exertion. For further evaluation of her coronary status, a cardiac catheterization was recommended. Patient underwent left heart catheterization with left and right coronary angiogram and LV angiogram today. The findings are as follows. 2. 1. No significant obstructive coronary disease. #2 mild diffuse irregularities in the mid and distal LAD and the proximal right coronary artery. 3. Normal ejection fraction with features of left-ventricular diastolic dysfunction. LVEDP of 30 mmHg. Diagnostic RX Recommendation: medical therapy and/or counseling LV EDP: 30 mmHg Ventriculography Ejection Fraction: 50.0 % Left Ventriculography Findings: * The LV gram was performed in the HENSLEY projection. LV cavity appeared to be normal size. LV ejection fraction was around 50%. No significant mitral valve prolapse or mitral regurgitation. Pressures Phase:Rest AO : 153 / 71 ( 105 ) @ 9:04:00 AM 135 / 74 ( 105 ) @ 9:06:00 AM 173 / 83 ( 122 ) @ 9:12:00 AM 174 / 82 ( 123 ) @ 9:12:00 AM LV : 153 / -16 / 10 @ 9:11:00 AM 156 / 2 / 31 @ 9:12:00 AM 162 / 3 / 31 @ 9:12:00 AM Valves Phase:DefaultPhase AV : 0.0 @ 8:35:48 AM AV Mean Gradient: 0.0 @ 8:35:48 AM Clinical Evaluation EBL: 5mL-10mL Procedural Details Procedure Consent Obtained. Current Diagnosis : Chest Pain. Pre-Procedure Time Out. Identified patient by full name and date of as verbalized by the patient/guarantor. Does the consent match the physician's order: Yes. Accurate & Complete Informed Consent: Yes. Inpatient/Outpatient History & Physical on Chart: Yes. If H&P is completed, is and addenduem needed: No; If yes, is the addendum complete: N/A. Visualize and Verify Site with Patient/Guarantor: N/A. Relevant Radiology Images available: Yes. Pre-op teaching completed and patient verbalized understanding. The risks, benefits, and alternatives of sedation and/or procedure were discussed by physician. The patient agrees to continue. Procedure started. [facility] [place] Clinical Fraility Score: 4: Vulnerable. Cardiac Rehabilitation Specialist Indications: Suspected CAD. Chest Pain Symptom Assessment: Atypical Angina. Correct patient, site and procedure confirmed by cath team. Current diagnosis: Chest Pain. PERRLA. Strong, equal hand roll tender bilaterally. Lungs clear x 5 lobes. IV Site on Arrival: 20 gauge in the right anticubital. IV Fluids: 0.9% NaCl at KVO. 0 mL infused prior to cath lab tech. Oxygen started at 2liters/min via nasal canula. bilateral groins was prepped with chloroprep then draped in the usual sterile fashion. Physician arrived. Physician scrubbed in. Immediate Pre-Procedure Time Out. Correct Patient: Yes; Correct Procedure: Yes; Correct Site: Yes; Correct Patient Position: Yes; Correct Supplies: Yes; Dried Flammable Prep: Yes; Blood Products Available: N/A;. Lidocaine 1% infiltrated to the right groin. Arterial access obtained with micropuncture set. A 5 cymro JL4 catheter in over wire. Multiple views taken of left coronary artery. Catheter removed over the standard wire. A 5 cymro JR4 catheter in over wire. Multiple views taken of right coronary artery. Catheter removed over the standard wire. A 5 cymro Angled Pig catheter in over wire. EDP Sample taken: LV 153/-17,10; HR: 83 BPM; SpO2: 95%. LV gram performed in HENSLEY @ 10 mL/second for a total of 30 mL. EDP Sample taken: LV 156/2,31; HR: 81 BPM; SpO2: 99%. Pullback taken: LV 162/3,31; AO 173/83(122); Mean: 0mmHg, Peak to Peak: 0mmHg, SEP: 9sec/min; HR: 83 BPM; SpO2: 98%. Catheter removed over the standard wire. Physician scrubbed out. Patient's family updated. A Manual Compression was successful obtaining hemostatsis at the Right Femoral artery insertion site. Post Procedure: Pulses reassessed and unchanged. PERRLA. Strong, equal hand roll tender bilaterally. No VTE prophylaxis required. Medication's Wasted: Other = Fentanyl 75 mcg. Medication's Wasted: Lidocaine 1% = 10 mL. Total IV fluids: 50 mL. Complications: None. Estimated blood loss: 5mL-10mL. Responsiveness - Normal response to verbal stimuli; alert and oriented, PERRLA. Airway - Unaffected, no intervention required; spontaneous ventilation. Circulation: W/N/L, pulses unchanged. Nausea/Vomiting: No. Vital chart was stopped. Procedure completed. Patient transferred by bed to 1st floor. Access Site Site: Right Femoral artery Sheath Size: 6 Fr Hemostasis Method: Manual Compression Hemostasis Success: Successful Procedure Medications Start: 7:48 AM Stop: 7:48 AM Medication: Versed 1 mg and Fentanyl 25 mcg Amount: 1 Route: I.V. Start: 7:58 AM Stop: 7:58 AM Medication: Versed Amount: 1 mg Route: I.V. I, the attending physician, have reviewed and verified all procedure medications. Yes, all medications given per verbal order History/Risk Factors Hypertension: Yes Dyslipidemia: Yes Peripheral Arterial Disease (PAD): No Myocardial Infarction (DE): No Obesity: No Renal Disease: No Tobacco Use: Former Prior Interventions PCI: No CABG: No Valve Surgery: No Report Signatures Finalized by Dr Lorelei Lucas MD [facility] on 09/06/2024 07:30 PM
--- NOTE | 2024-09-06 08:41 | PC.NURSE ---
received pt from general laborer via bed. pt alert, orientedx4. pt has a dressing on right groin for right femoral access.noted small amt hematoma upon reveived with BECKY Fernandez at bedside. Held pressure for 10 mins. noted small bruising right groin. call light provided to pt. pt denies any pain on right groin area. pedal pulses palpable. instructed pt and family on activity restrictions post cath and to notify nurse CHRISTINE if their is unusual pain,pressure or bleeding or numbness.
[2024-09-06] MEDS: aspirin 81 mg EC Tablet PO (09:43)
[2024-09-06] MEDS: hydroxychloroquine 200 mg Tablet 400 MG PO (09:43)
[2024-09-06] MEDS: clopidogrel 75 mg Tablet PO (09:43)
[2024-09-06] MEDS: gabapentin 300 mg Capsule PO ×2 (09:43→19:05)
[2024-09-06] MEDS: montelukast sodium 10 mg Tablet PO (09:43)
[2024-09-06] MEDS: predniSONE 5 mg Tablet 2.5 MG PO (09:43)
[2024-09-06] MEDS: pantoprazole DR 40 mg Tablet PO ×2 (09:43→19:05)
[2024-09-06] MEDS: alum-mag-hydroxide-sime 30 mL UDC PO (12:18)
--- NOTE | 2024-09-06 12:19 | PC.NURSE ---
maloxx requested and administered at this time due to increased belching
[2024-09-06 12:30] LABS: Glucose Point of Care 120 mg/dL (70-110)
[2024-09-06 17:04] LABS: Glucose Point of Care 138 mg/dL (70-110)
--- NOTE | 2024-09-06 17:21 | USCV_ITS ---
JonesJaye long Age: 63 Gender: F : 1960 Exam Date: 09/06/2024 19:42 Ordering Phys: Zaina De La Cruz MD Technologist: ANTWAN [place] [facility] [place] [facility] [place]: right groin Findings Patent femoral artery and vein in the right groin. No evidence of hematoma. No evidence of pseudoaneurysm Conclusions No hematoma or pseudoaneurysm in the right groin Patent femoral artery and vein in the groin area [id number] Dr Lorelei Lucas MD FAC (Electronically Signed) Final Date: 08 September 2024 16:45 S
--- NOTE | 2024-09-06 18:26 | P.PN_ITS ---
Subjective 2 Subjective: seen this morning underwent cardiac cath today femoral approach used right groin, currently getting post cath care Vitals/I&O/Wt Last Vital Signs Temp 97.9 F 09/06/24 16:00 Pulse 78 09/06/24 16:00 Resp 16 09/06/24 16:00 BP 138/84 09/06/24 16:00 Pulse Ox 95 09/06/24 16:00 O2 Del Method Room Air 09/06/24 16:00 O2 Flow Rate 1 09/06/24 04:00 09/06/24 09/06/24 09/06/24 06:59 14:59 22:59 Intake Total 840 / 840 Balance 840 / 840 Weight last 48 hrs Weight 77.836 kg Weight 77.02 kg Physical Exam 2 Narrative: General: No acute distress Cardiovascular regular rate and rhythm, heart sounds distant Lungs clear no wheezing or crackles Abdomen is soft obese nontender Extremities no edema bilateral extremities Neuro no focal deficits Data 09/07/24 04:14 09/07/24 04:14 A&P Assessment and plan (1) Chest pain: Patient presents with ill-defined chest discomfort. She gives me more history of palpitations, but to the emergency department she is given history of pressure. Certainly gives both of us a history of some discomfort into her upper back. She cannot really qualify the discomfort. Either way, this is better. Differential is a large. Enzymes do not indicate an MO, but angina is not completely excluded. Also cannot exclude aorta abnormalities, CHF, PE, musculoskeletal pain, anxiety, reflux, etc. For now we will go ahead and do a CTA of her chest secondary to her chest discomfort radiating to her back associated with shortness of breath. With her cardiac enzyme, and EKG without any acute findings, I am not going to anticoagulate her at this time other than DVT prophylaxis. Will await for the studies first as she has no significant discomfort now. Will give Tylenol by mouth Okay to give aspirin, and daily until etiology of problem is investigated further Qualifiers: Chest pain type: other chest pain Qualified Code(s): R07.89 - Other chest pain (2) Palpitations: Check TSH Magnesium level next telemetry (3) Edema: Lasix 40 mg IV x 1. Reassessment need for more diuretic in the morning Check BNP Echocardiogram Venous duplex UA with micro (4) Transaminitis: Hepatitis panel Recheck tomorrow (5) Seronegative rheumatoid arthritis of both hands: Continue prednisone, hydroxychloroquine. Note that she is also on methotrexate and tofacitinib. Hold these currently. Plan Diabetes mellitus. Sliding scale insulin History of asthma. Budesonide twice daily, DuoNeb as needed. No evidence of asthma exacerbation currently. Multiple other medical problems as outlined in past medical history Full code Lovenox for DVT prophylaxis 09/06 Patient is a poor historian. CTA chest negative for any acute pathology Currently chest pain-free Troponins negative x 3. Echo complete. EF 50 to 55% grade 1 diastolic dysfunction. No wall motion abnormalities. ? stress testing completed, abnormal - consult cardiology - underwent coronary angiogram receiving post cath care at this time plan for dc later today if continues to do well Attestations 2 Medical Necessity Statement*: post cardiac cath Diagnoses Other chest pain R07.89 Chest pain type: other chest pain Palpitations R00.2 Edema R60.9 Transaminitis R74.01 Seronegative rheumatoid arthritis of both hands M06.041; M06.042
[2024-09-06 19:46] LABS: Basophils % 0.4 %; Eosinophils # 0.1 10^3/uL (0.0-0.8); Eosinophils % 1.8 %; Hematocrit 38.5 % (36-47); Lymphocytes # 1.1 10^3/uL (0.8-4.8); Lymphocytes % 13.6 %; Mean Corpuscular HGB Conc 31.7 g/dL (30-55); Mean Corpuscular Hemoglobin 29.7 pg (27-33); Mean Corpuscular Volume 93.7 fl (85-98); Mean Platelet Volume 9.2 fL (7.4-10.4); Monocytes # 0.9 10^3/uL (0.2-0.9); Monocytes % 11.3 %; Neutrophils # 5.78 10^3/uL (1.8-7.7); Neutrophils % 72.4 %; Nucleated Red Blood Cells % 0 %; Platelet Count 269 10^3/cmm (157-399); Red Blood Count 4.11 10^6/uL (3.85-5.65); Red Cell Distribution Width 14.4 % (12.1-15.1); White Blood Count 7.97 10^3/uL (3.29-11.43)
--- NOTE | 2024-09-06 20:15 | PC.NURSE ---
shift note Pt is s/p LHC with right groin access this morning.Pt has mild bruising around the right groin area but no hematoma felt around 10:30 AM. pt is able to get out of bed to bedside commode w/no problem, right groin checks upon out of bed, bruising still present and no hematoma felt. pt has minimal tenderness on right groin site but reports pain on lower abdomen to perineal area due to diarrhea? Notified dr De La Cruz around 1708 on the bruising and lower abdomen pain s/p cath and diarrhea episode. Received telephone order to get Ultrasound arterial duplex on right groin.
[2024-09-06 20:34] LABS: Glucose Point of Care 135 mg/dL (70-110)
[2024-09-06] MEDS: ipratropium-albuterol 3 mL Neb INHALATION (21:02)
[2024-09-06] MEDS: budesonide 0.5 mg/2 mL Neb INHALATION (21:02)
[2024-09-07] VITALS: BP 119/63; PULSE 68; RESP 13; TEMP 36.7; O2SAT 96
[2024-09-07 04:00] VITALS: BP 133/59; PULSE 69; RESP 15; TEMP 36.9; O2SAT 95
[2024-09-07 04:25] LABS: Basophils % 0.4 %; Eosinophils # 0.2 10^3/uL (0.0-0.8); Eosinophils % 3.1 %; Lymphocytes # 1.3 10^3/uL (0.8-4.8); Lymphocytes % 16.9 %; Mean Corpuscular HGB Conc 31.3 g/dL (30-55); Mean Corpuscular Hemoglobin 29.8 pg (27-33); Mean Corpuscular Volume 95.2 fl (85-98); Mean Platelet Volume 9.1 fL (7.4-10.4); Monocytes % 13.7 %; Neutrophils # 4.87 10^3/uL (1.8-7.7); Neutrophils % 65.2 %; Nucleated Red Blood Cells % 0 %; Platelet Count 244 10^3/cmm (157-399); Red Blood Count 3.99 10^6/uL (3.85-5.65); Red Cell Distribution Width 14.3 % (12.1-15.1); White Blood Count 7.46 10^3/uL (3.29-11.43)
[2024-09-07 04:47] LABS: Anion Gap 13.6 (5-19); Blood Urea Nitrogen 18 mg/dL (8-23); Calcium 8.3 mg/dL (8.5-10.5); Carbon Dioxide 26 mmol/L (22-29); Chloride 106 mmol/L (98-107); Creatinine Clr Calc Pharmacy 58.9626; Glomerular Filtration Rate 45.4 mL/min (90-130); Glucose 122 mg/dL (65-115); Osmolality Calculated 295 mOsm/kg (285-295); Potassium 4.6 mmol/L (3.5-5.1); Sodium 141 mmol/L (136-145)
[2024-09-07 06:16] LABS: Glucose Point of Care 94 mg/dL (70-110)
[2024-09-07] MEDS: aspirin 81 mg EC Tablet PO (07:59)
[2024-09-07 08:00] VITALS: BP 162/67; PULSE 71; PULSE 84; RESP 14; RESP 16; O2SAT 95; O2SAT 97
[2024-09-07] MEDS: predniSONE 5 mg Tablet 2.5 MG PO (08:00)
[2024-09-07] MEDS: montelukast sodium 10 mg Tablet PO (08:00)
[2024-09-07] MEDS: gabapentin 300 mg Capsule PO (08:00)
[2024-09-07] MEDS: pantoprazole DR 40 mg Tablet PO (08:00)
[2024-09-07] MEDS: clopidogrel 75 mg Tablet PO (08:00)
[2024-09-07] MEDS: hydroxychloroquine 200 mg Tablet 400 MG PO (08:00)
--- NOTE | 2024-09-07 09:46 | P.PN_ITS ---
Subjective 2 Subjective: Patient is feeling okay. She has no chest pain or palpitations. The right groin has no hematoma bleeding. Medications: Medication Review Details: Current Medications Acetaminophen (Acetaminophen 325 Mg Tablet) 650 mg PO Q6H PRN PRN Reason: Mild/Mod Pain Or Temp >/= 101 Al Hydrox/Mg Hydrox/Simethicone (Brtt-Cqa-Whrkprzgc-Irma 30 Ml Udc) 30 ml PO Q15M PRN PRN Reason: INDIGESTION Last Admin: 09/06/24 12:18 Dose: 30 ml Albuterol/Ipratropium (Ipratropium-Albuterol 3 Ml Neb) 3 ml INHALATION Q6H PRN PRN Reason: SHORTNESS OF BREATH Last Admin: 09/06/24 21:02 Dose: 3 ml Alprazolam (Alprazolam 0.5 Mg Tablet) 0.25 mg PO TID PRN PRN Reason: ANXIETY Aspirin (Aspirin 81 Mg Ec Tablet) 81 mg PO DAILY [facility] Last Admin: 09/07/24 07:59 Dose: 81 mg Atropine Sulfate (Atropine 1 Mg/Ml Sdv 1 Ml) 0.5 mg IVP PRN PRN PRN Reason: Symptomatic bradycardia Budesonide (Budesonide 0.5 Mg/2 Ml Neb) 0.5 mg INHALATION BID.RESPIRATORY [facility] Last Admin: 09/06/24 21:02 Dose: 0.5 mg Clopidogrel Bisulfate (Clopidogrel 75 Mg Tablet) 75 mg PO DAILY [facility] Last Admin: 09/07/24 08:00 Dose: 75 mg Enoxaparin Sodium (Enoxaparin 40 Mg/0.4 Ml Syringe) 40 mg SUBCUT Q24H [facility] Last Admin: 09/06/24 17:30 Dose: Not Given Gabapentin (Gabapentin 300 Mg Capsule) 300 mg PO BID [facility] Last Admin: 09/07/24 08:00 Dose: 300 mg Glucagon (Glucagon 1 Mg/Ml Kit 1 Ml) 1 mg IM ONCE PRN; Protocol PRN Reason: Adult Acute Hypoglycemia Nursing Prot. Hydroxychloroquine Sulfate (Hydroxychloroquine 200 Mg Tablet) 400 mg PO DAILY [facility] Last Admin: 09/07/24 08:00 Dose: 400 mg Dextrose (D5w) 500 mls @ 0 mls/hr IV ONCE PRN; Protocol PRN Reason: Adult Acute Hypoglycemia Prot Dextrose (D10w) 125 mls @ 750 mls/hr IV PRN PRN; Protocol PRN Reason: Adult Acute Hypoglycemia Nursing Protocol Dextrose (D10w) 250 mls @ 1,000 mls/hr IV PRN PRN; Protocol PRN Reason: Adult Acute Hypoglycemia Nursing Protocol Insulin Human Lispro (Insulin Lispro 100 Unit/1 Ml) 0 unit SUBCUT WM&BEDTIME [facility]; Protocol Last Admin: 09/07/24 07:42 Dose: Not Given Magnesium Hydroxide (Magnesium Hydroxide 30 Ml Udc) 30 ml PO DAILY PRN PRN Reason: CONSTIPATION Montelukast Sodium (Montelukast Sodium 10 Mg Tablet) 10 mg PO DAILY [facility] Last Admin: 09/07/24 08:00 Dose: 10 mg Naloxone HCl (Naloxone 0.4 Mg/Ml Sdv) 0.1 mg IVP Q2M PRN PRN Reason: RESPIRATORY RATE < 8/MIN Nitroglycerin (Nitroglycerin 0.4 Mg Sublingual Tablet) 0.4 mg SUBLINGUAL Q5M PRN PRN Reason: CHEST PAIN Ondansetron HCl (Ondansetron 2 Mg/Ml Sdv 2 Ml) 4 mg IVP Q8H PRN PRN Reason: vomiting, or N/V if npo Ondansetron HCl (Ondansetron 2 Mg/Ml Sdv 2 Ml) 4 mg IVP Q2M PRN PRN Reason: NAUSEA Pantoprazole Sodium (Pantoprazole Dr 40 Mg Tablet) 40 mg PO BID [facility] Last Admin: 09/07/24 08:00 Dose: 40 mg Prednisone (Prednisone 5 Mg Tablet) 2.5 mg PO DAILY [facility] Last Admin: 09/07/24 08:00 Dose: 2.5 mg Temazepam (Temazepam 15 Mg Capsule) 15 mg PO BEDTIME PRN PRN Reason: INSOMNIA Vitals/I&O/Wt Last Vital Signs Temp 98.5 F 09/07/24 04:00 Pulse 71 09/07/24 08:00 Resp 14 09/07/24 08:00 BP 162/67 09/07/24 08:00 Pulse Ox 97 09/07/24 08:00 O2 Del Method Room Air 09/07/24 08:00 O2 Flow Rate 1 09/06/24 04:00 09/06/24 09/07/24 09/07/24 22:59 06:59 14:59 Intake Total 300 / 1140 1000 / 2140 540 / 540 Balance 300 / 1140 1000 / 2140 540 / 540 Weight last 48 hrs Weight 171 lb 9.6 oz Weight 171 lb 9.6 oz Physical Exam 2 Narrative: Yejaimee GENERAL: The patient is alert and oriented times three. Not in any acute distress. HEENT: No significant pallor, icterus or lymphadenopathy.Oral cavity: There are no mucous membrane lesions. NECK: Trachea appears to be central. No masses noted. No JVD or thyromegaly appreciated. RESPIRATORY: Chest is symmetrical. No intercostals muscle retraction or any accessory muscle activation. There is no chest wall tenderness. Breath sounds are heard bilaterally. No rales or rhonchi heard. No evidence of any consolidation. BREASTS: Deferred. HEART: The heart sounds are normal. No S3 or S4. No significant murmurs. No pericardial rub ABDOMEN: No vessel pulsations or distention. No tenderness. No organomegaly appreciated. Bowel sounds are normally heard. : Deferred. RECTAL: Deferred. LYMPHATIC: No lymphadenopathy noted in the neck. EXTREMITIES: Right groin has no hematoma bleeding. MUSCULOSKELETAL: No acute joint deformities or swelling SKIN: There are no significant rashes or ecchymosis NEUROPSYCHIATRIC: The patient is alert and oriented x3. Appears to be in a good mood. No tremors or rigidity noted. Data 09/07/24 04:14 09/07/24 04:14 Other Labs: Laboratory Last Values WBC 7.46 10^3/uL (3.29-11.43) 09/07/24 04:14 RBC 3.99 10^6/uL (3.85-5.65) 09/07/24 04:14 Hgb 11.90 g/dL (11.27-16.99) 09/07/24 04:14 Hct 38.0 % (36-47) 09/07/24 04:14 MCV 95.2 fl (85-98) 09/07/24 04:14 MCH 29.8 pg (27-33) 09/07/24 04:14 MCHC 31.3 g/dL (30-55) 09/07/24 04:14 RDW 14.3 % (12.1-15.1) 09/07/24 04:14 Plt Count 244 10^3/cmm (157-399) 09/07/24 04:14 MPV 9.1 fL (7.4-10.4) 09/07/24 04:14 Neut % (Auto) 65.2 % 09/07/24 04:14 Lymph % (Auto) 16.9 % 09/07/24 04:14 Perkins % (Auto) 13.7 % 09/07/24 04:14 Eos % (Auto) 3.1 % 09/07/24 04:14 Baso % (Auto) 0.4 % 09/07/24 04:14 Neut # (Auto) 4.87 10^3/uL (1.8-7.7) 09/07/24 04:14 Lymph # (Auto) 1.3 10^3/uL (0.8-4.8) 09/07/24 04:14 Perkins # (Auto) 1.0 10^3/uL (0.2-0.9) H 09/07/24 04:14 Eos # (Auto) 0.2 10^3/uL (0.0-0.8) 09/07/24 04:14 Baso # (Auto) 0.0 10^3/uL (0.0-0.1) 09/07/24 04:14 Nucleated RBC % (auto) 0 % 09/07/24 04:14 Nucleated RBCs # 0.0 /100WBC 09/07/24 04:14 Sodium 141 mmol/L (136-145) 09/07/24 04:14 Potassium 4.6 mmol/L (3.5-5.1) 09/07/24 04:14 Chloride 106 mmol/L (98-107) 09/07/24 04:14 Carbon Dioxide 26 mmol/L (22-29) 09/07/24 04:14 Anion Gap 13.6 (5-19) 09/07/24 04:14 BUN 18 mg/dL (8-23) 09/07/24 04:14 Creatinine 1.2 mg/dL (0.5-0.9) H 09/07/24 04:14 GFR Calculation 45.4 mL/min (90-130) L 09/07/24 04:14 Glucose 122 mg/dL (65-115) H 09/07/24 04:14 POC Glucose 94 mg/dL (70-110) 09/07/24 06:13 Calculated Osmolality 295 mOsm/kg (285-295) 09/07/24 04:14 Calcium 8.3 mg/dL (8.5-10.5) L 09/07/24 04:14 Magnesium 2.0 mg/dL (1.7-2.3) 09/05/24 04:27 Total Bilirubin 0.2 mg/dL (0.15-1.2) 09/03/24 02:23 AST 35 U/L (0-32) H 09/03/24 02:23 ALT 61 U/L (0-33) H 09/03/24 02:23 Alkaline Phosphatase 52 U/L (35-105) 09/03/24 02:23 Troponin T Baseline 10 ng/L (0-10) 09/02/24 08:10 Troponin T 120 Minute 8.10 ng/L (0-10) 09/02/24 10:12 Delta Troponin T -1.90 ABS# (0-10) L 09/02/24 10:12 Troponin T Hi Sens 6Hr 8.78 ng/L (0-10) 09/02/24 14:29 Troponin T Hi Sens 6Hr Delta -1.22 ng/L (0-12) L 09/02/24 14:29 NT-Pro-B Natriuret Pep 182 pg/mL (0-125) H 09/02/24 08:10 Total Protein 7.5 g/dL (6.6-8.7) 09/03/24 02:23 Albumin 4.5 g/dL (3.5-5.2) 09/03/24 02:23 Globulin 3.0 g/dL (1.3-4.6) 09/03/24 02:23 TSH 1.48 uIU/mL (0.27-4.20) 09/02/24 10:12 Urine Color Yellow (Yellow) 09/02/24 13:13 Urine Appearance Clear (CLEAR) 09/02/24 13:13 Urine pH 7.0 (5-7) 09/02/24 13:13 Ur Specific Parker 1.021 (1.005-1.030) 09/02/24 13:13 Urine Protein Negative (Negative) 09/02/24 13:13 Urine Glucose (UA) Negative (Normal) 09/02/24 13:13 Urine Ketones Negative (Negative) 09/02/24 13:13 Urine Blood Negative (Negative) 09/02/24 13:13 Urine Nitrate Negative (Negative) 09/02/24 13:13 Urine Bilirubin Negative (Negative) 09/02/24 13:13 Urine Urobilinogen 0.2 mg/dL (Negative) 09/02/24 13:13 Ur Leukocyte Esterase Negative (Negative) 09/02/24 13:13 Urine RBC 0-2 /hpf (0-2) 09/02/24 13:13 Urine WBC 0-5 /hpf (0-5) 09/02/24 13:13 Ur Squamous Epith Cells 0-5 /hpf (0-5) 09/02/24 13:13 Amorphous Sediment Not Reportable 09/02/24 13:13 Urine Bacteria None seen /hpf (NONE) 09/02/24 13:13 Hyaline Casts 0-4 /lpf H 09/02/24 13:13 Coronavirus 229E (PCR) Not detected (NOT DETECT) 09/02/24 13:40 Hepatitis A IgM Ab Non-reactive (Nonreactive) 09/02/24 08:10 Hep Bs Antigen Non-reactive (Nonreactive) 09/02/24 08:10 Hep B Core IgM Ab Non-reactive (Nonreactive) 09/02/24 08:10 Hepatitis C Antibody Non-reactive (Nonreactive) 09/02/24 08:10 SARS-CoV-2 (PCR) Not detected (NOT DETECT) 09/02/24 13:40 A&P Assessment and plan (1) Chest pain: Patient had no significant coronary disease by angiogram. She had evidence of left-ventricular diastolic dysfunction. At this point, I may discontinue the Plavix. I may start her on a low-dose of beta-cayla namely metoprolol 12.5 mg p.o. twice daily. She has an elevated blood pressure as well. Qualifiers: Chest pain type: other chest pain Qualified Code(s): R07.89 - Other chest pain (2) Heart palpitations: So far there is no documented arrhythmias. Patient may go home with an event monitor for for a month. (3) T2DM (type 2 diabetes mellitus): The blood sugar seems to be under control. May continue on the current management. Qualifiers: Diabetes mellitus middle or intermediate school principal insulin use: without middle or intermediate school principal use Diabetes mellitus complication status: without complication Qualified Code(s): E11.9 - Type 2 diabetes mellitus without complications (4) Dyslipidemia: Patient apparently has intolerance to statins. She developed muscle pains with the medications in the past. Currently she is not on any statin drugs. (5) Abnormal nuclear cardiac imaging test: Seems to be false positive. (6) Left ventricular systolic dysfunction (LVSD): Management as mentioned above Plan If she continues to remain stable, may be discharged home Metoprolol 12.5 mg p.o. twice daily Event monitor for 30 days Will see her back in the office in 1 month Attestations 2 Medical Necessity Statement*: Disposition as per the primary Coding Level of Care Code 11802 Diagnoses Other chest pain R07.89 Chest pain type: other chest pain Heart palpitations R00.2 Type 2 diabetes mellitus without complication, without long-term current use of insulin E11.9 Diabetes mellitus middle or intermediate school principal insulin use: without fpc use Diabetes mellitus complication status: without complication Dyslipidemia E78.5 Abnormal nuclear cardiac imaging test R93.1 Left ventricular systolic dysfunction (LVSD) I51.9
[2024-09-07] MEDS: budesonide 0.5 mg/2 mL Neb INHALATION (10:06)
[2024-09-07] MEDS: ipratropium-albuterol 3 mL Neb INHALATION (10:06)
[2024-09-07 12:00] VITALS: BP 120/66; PULSE 86; RESP 18; TEMP 36.9; O2SAT 94
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
[2024-09-07 12:15] LABS: Glucose Point of Care 101 mg/dL (70-110)
--- NOTE | 2024-09-07 13:28 | PC.NURSE ---
Home medications left in pyxus. This nurse called pt and patients sisterShakira to inform them.
== END 2024-09-07 13:29 | disposition home or self-care (01) ==
LOC: ER 13:53 → CSU 15:22
PROVIDERS: Internal Medicine Cardiovascular Disease; Admitting Provider Internal Medicine; Emergency Provider Family Medicine; PCP Internal Medicine; Visit Provider Internal Medicine
DX: R07.89 Other chest pain (principal); R00.2 Palpitations; E11.9 Type 2 diabetes mellitus without complications; E78.5 Hyperlipidemia, unspecified; R93.1 Abnormal findings on diagnostic imaging of heart and coronary circulation; I51.9 Heart disease, unspecified; R60.0 Localized edema; R74.01 Elevation of levels of liver transaminase levels; M06.042 Rheumatoid arthritis without rheumatoid factor, left hand; M06.041 Rheumatoid arthritis without rheumatoid factor, right hand; Z87.891 Personal history of nicotine dependence; J45.909 Unspecified asthma, uncomplicated; Z79.84 Long term (current) use of oral hypoglycemic drugs; K21.9 Gastro-esophageal reflux disease without esophagitis; M79.7 Fibromyalgia
CPT/HCPCS: 36415; 36416; 71045; 71275; 78452; 80048; 80053; 80074; 81001; 82962; 83735; 83880; 84443; 84484; 85025; 87635; 93005; 93017; 93306; 93458; 93926; 93970; 94640; 96361; 96372; 96374; 96375; 96376; 99152; 99153; 99285; A9500; C1769; C1887; C1894; G0378; J1644; J1650; J1815; J1940; J2250; J2785; J3010; J3490; J7030; J7050; J7512; J7626; Q0163; Q9967

== ENCOUNTER → 2024-09-14 14:56 | Outpatient (BNVA) | payer MEDICARE, MEDICAID, SELFPAY | PROVIDERS: PCP Internal Medicine; Visit Provider Nurse Practitioner Family | DX: Z09 Encounter for follow-up examination after completed treatment for conditions other than malignant neoplasm (principal) | CPT/HCPCS: 99213 ==

== ENCOUNTER → 2024-10-11 14:26 | Outpatient (BNVA) | payer MEDICARE, MEDICAID, SELFPAY | PROVIDERS: PCP Internal Medicine; Visit Provider Podiatrist Foot & Ankle Surgery | DX: L60.3 Nail dystrophy (principal); G62.9 Polyneuropathy, unspecified; E11.42 Type 2 diabetes mellitus with diabetic polyneuropathy; Z79.84 Long term (current) use of oral hypoglycemic drugs | CPT/HCPCS: 11056; 11721; 99203 ==

== ENCOUNTER 2024-10-19 14:01 | Outpatient (CLI) | payer MEDICARE, MEDICAID, SELFPAY ==
--- NOTE | 2024-10-19 14:05 | MM_ITS ---
WS: [id number] BILATERAL 3D TOMOSYNTHESIS DIGITAL SCREENING MAMMOGRAM WITH CAD CLINICAL INFORMATION: SCREENING HISTORY: Screening mammogram. No current complaints. COMPARISON: 2020 TECHNIQUE: Bilateral CC and MLO views. FINDINGS: Fatty-replaced breasts bilaterally. No suspicious focal mass, asymmetry, calcifications, or deal architect ural distortion. No evidence of malignancy. A few benign calcifications. MM/MM scr tomosynthesis [id number] IMPRESSION: DENSITY: The breasts are almost entirely fatty. BI-RADS: 2 - Benign. FOLLOW UP: 1 Year Follow-up Recommend return to annual screening mammography.
== END 2024-10-19 14:02 | disposition home or self-care (01) ==
LOC: RAD 14:03
PROVIDERS: PCP Internal Medicine; Visit Provider Internal Medicine
DX: Z12.31 Encounter for screening mammogram for malignant neoplasm of breast (principal); R92.313 Mammographic fatty tissue density, bilateral breasts; R92.1 Mammographic calcification found on diagnostic imaging of breast
CPT/HCPCS: 77063; 77067

== ENCOUNTER → 2024-11-28 14:30 | Outpatient (BNVA) | payer MEDICARE, MEDICAID, SELFPAY | PROVIDERS: PCP Internal Medicine; Visit Provider Internal Medicine Cardiovascular Disease | DX: I11.9 Hypertensive heart disease without heart failure (principal); E78.5 Hyperlipidemia, unspecified; E11.9 Type 2 diabetes mellitus without complications; Z79.84 Long term (current) use of oral hypoglycemic drugs; Z87.891 Personal history of nicotine dependence | CPT/HCPCS: 99214 ==

== ENCOUNTER → 2024-12-13 14:45 | Outpatient (BNVA) | payer MEDICARE, MEDICAID, SELFPAY | PROVIDERS: PCP Internal Medicine; Visit Provider Podiatrist Foot & Ankle Surgery | DX: L60.3 Nail dystrophy (principal); G62.9 Polyneuropathy, unspecified; E11.42 Type 2 diabetes mellitus with diabetic polyneuropathy; L84 Corns and callosities; Z79.84 Long term (current) use of oral hypoglycemic drugs | CPT/HCPCS: 11056; 11721 ==

== ENCOUNTER 2024-12-27 10:45 | Outpatient (CLI) | payer MEDICARE, MEDICAID, SELFPAY ==
[2024-12-27 11:04] LABS: Basophils % 0.5 %; Eosinophils # 0.1 10^3/uL (0.0-0.8); Lymphocytes # 1.8 10^3/uL (0.8-4.8); Lymphocytes % 30.7 %; Mean Corpuscular Hemoglobin 29.3 pg (27-33); Mean Corpuscular Volume 91.7 fl (85-98); Mean Platelet Volume 9.6 fL (7.4-10.4); Monocytes # 0.4 10^3/uL (0.2-0.9); Monocytes % 7.3 %; Neutrophils # 3.52 10^3/uL (1.8-7.7); Neutrophils % 59.3 %; Nucleated Red Blood Cells % 0 %; Platelet Count 245 10^3/cmm (157-399); Red Blood Count 4.47 10^6/uL (3.85-5.65); Red Cell Distribution Width 14.5 % (12.1-15.1); White Blood Count 5.93 10^3/uL (3.29-11.43)
[2024-12-27 11:16] LABS: Erythrocyte Sedimentation Rate 4 mm/hr (0-15)
[2024-12-27 11:25] LABS: Alanine Aminotransferase 53 U/L (0-33); Albumin Level 4.4 g/dL (3.5-5.2); Alkaline Phosphatase 44 U/L (35-105); Aspartate Amino Transferase 46 U/L (0-32); Globulin 2.9 g/dL (1.3-4.6); Total Bilirubin 0.3 mg/dL (0.15-1.2); Total Protein 7.3 g/dL (6.6-8.7)
== END 2024-12-27 10:46 | disposition home or self-care (01) ==
LOC: LAB 10:49
PROVIDERS: Visit Provider Internal Medicine Rheumatology
DX: Z79.899 Other long term (current) drug therapy (principal); M06.041 Rheumatoid arthritis without rheumatoid factor, right hand; M06.042 Rheumatoid arthritis without rheumatoid factor, left hand
CPT/HCPCS: 36415; 80076; 82565; 85025; 85651; 86140

== ENCOUNTER → 2025-02-02 13:28 | Outpatient (BNVA) | payer MEDICARE, MEDICAID, SELFPAY | PROVIDERS: Visit Provider Internal Medicine Rheumatology | DX: M06.041 Rheumatoid arthritis without rheumatoid factor, right hand (principal); M06.042 Rheumatoid arthritis without rheumatoid factor, left hand; R76.8 Other specified abnormal immunological findings in serum; Z79.899 Other long term (current) drug therapy; Z71.89 Other specified counseling; M79.7 Fibromyalgia | CPT/HCPCS: 99214 ==

== ENCOUNTER 2025-03-25 21:04 | Emergency (ER) | payer MEDICARE, MEDICAID, SELFPAY ==
[2025-03-25 21:11] VITALS: BP 118/62; PULSE 83; RESP 18; TEMP 36.2; O2SAT 97; BMI 32.5
--- NOTE | 2025-03-25 22:41 | CTR_ITS ---
PROCEDURE INFORMATION: Exam: CT Head Without Contrast Exam date and time: 03/25/2025 10:45 PM Age: 64 years old Clinical indication: Injury or trauma; Blunt trauma (contusions or hematomas); Injury details: Fall. Bruising to bilateral eyes and nose TECHNIQUE: Imaging protocol: Computed tomography of the head without contrast. Radiation optimization: All CT scans at this facility use at least one of these dose optimization techniques: automated exposure control; mA and/or kV adjustment per patient size (includes targeted exams where dose is matched to clinical indication); or iterative reconstruction. COMPARISON: CT facial bones wo con* [id number] 03/25/2025 10:45 PM RADIATION DOSE METRICS: Total DLP (mGy-cm): 1041.7 FINDINGS: Brain: Normal. No hemorrhage. Unremarkable white matter. No mass effect. Cerebral ventricles: No ventriculomegaly. Paranasal sinuses: Visualized sinuses are unremarkable. No fluid levels. Mastoid air cells: Visualized mastoid air cells are well aerated. Bones: Deviation of nasal septum with multiple minimally displaced nasal bone fractures. Soft tissues: Soft tissue contusion overlying bilateral maxillary regions. CT/CT head wo con* [id number] IMPRESSION: 1. No acute intracranial findings. 2. Multiple minimally displaced nasal bone fractures. 3. Soft tissue contusion overlying bilateral maxillary regions.
--- NOTE | 2025-03-25 22:41 | CTR_ITS ---
PROCEDURE INFORMATION: Exam: CT Maxillofacial Without Contrast Exam date and time: 03/25/2025 10:45 PM Age: 64 years old Clinical indication: Injury or trauma; Blunt trauma (contusions or hematomas); Nose and ocular (eye or eyeball); Injury details: Fall. Bruising to bilateral eyes and nose TECHNIQUE: Imaging protocol: Computed tomography of the face without contrast. Radiation optimization: All CT scans at this facility use at least one of these dose optimization techniques: automated exposure control; mA and/or kV adjustment per patient size (includes targeted exams where dose is matched to clinical indication); or iterative reconstruction. COMPARISON: CT head wo con* [id number] 03/25/2025 10:45 PM RADIATION DOSE METRICS: Total DLP (mGy-cm): 496.8 FINDINGS: Paranasal sinuses: No air-fluid levels. Orbital cavities: Orbits are normal. Globes are unremarkable. Bones: Comminuted mildly displaced bilateral nasal bone fractures. Deviation of nasal septum. Remainder of osseous structures appear intact. Partially included cervical spine appears intact. Soft tissues: Soft tissue contusion overlying right and left maxillary regions, greater on the left. CT/CT facial bones wo con* [id number] IMPRESSION: Comminuted mildly displaced bilateral nasal bone fractures with significant deviation of the septum.
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
[2025-03-26] MEDS: acetaminophen 500 mg Tablet 1000 MG PO (00:14)
[2025-03-26 00:22] LABS: Bilirubin Urine Negative (Negative); Blood Urine Trace (Negative); Glucose Urine UA Negative (Normal); Ketones Urine Negative (Negative); Leukocyte Esterase Urine Trace (Negative); Nitrate Urine Negative (Negative); Protein Urine Negative (Negative); Specific Gravity, Urine 1.005 (1.005-1.030); Urine Color Yellow (Yellow); Urobilinogen Urine 0.2 mg/dL (Negative)
[2025-03-26 00:24] LABS: Add Urine Microscopic? YES; Bacteria Urine None Seen /hpf; Hyaline Casts Urine 0.81 /lpf; RBC Urine 0-2 /hpf (0-2); Squamous Epithelial Cell Urine 0-5 /hpf (0-5); WBC Urine 0-5 /hpf (0-5)
[2025-03-26 00:25] LABS: Urine Appearance Clear (CLEAR)
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
[2025-03-26 00:39] VITALS: BP 172/65; PULSE 90; RESP 18; O2SAT 98
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
[2025-03-26 02:45] VITALS: BP 164/56; PULSE 78; O2SAT 98
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
--- NOTE | 2025-03-27 08:07 | DCPLANNER ---
faxed referral to ENT (guido)
== END 2025-03-26 02:50 | disposition home or self-care (01) ==
PROVIDERS: Emergency Provider Nurse Practitioner
DX: S02.2XXA Fracture of nasal bones, initial encounter for closed fracture (principal); Z79.82 Long term (current) use of aspirin; Z79.84 Long term (current) use of oral hypoglycemic drugs; Z87.891 Personal history of nicotine dependence; W19.XXXA Unspecified fall, initial encounter
CPT/HCPCS: 70450; 70486; 81001; 99284; J9999

== ENCOUNTER → 2025-05-04 13:17 | Outpatient (BNVA) | payer MEDICARE, MEDICAID, SELFPAY | PROVIDERS: Visit Provider Internal Medicine Rheumatology | DX: M06.041 Rheumatoid arthritis without rheumatoid factor, right hand (principal); M06.042 Rheumatoid arthritis without rheumatoid factor, left hand; R76.8 Other specified abnormal immunological findings in serum; Z79.899 Other long term (current) drug therapy; M79.7 Fibromyalgia; Z71.89 Other specified counseling | CPT/HCPCS: 36415; 80076; 82306; 82565; 85025; 85651; 86140; 86480; 99214 ==

== ENCOUNTER → 2025-06-09 09:46 | Outpatient (BNVA) | payer MEDICARE, MEDICAID, SELFPAY | PROVIDERS: PCP Family Medicine; Visit Provider Nurse Practitioner Family | DX: I51.89 Other ill-defined heart diseases (principal); I10 Essential (primary) hypertension; E78.5 Hyperlipidemia, unspecified; E11.9 Type 2 diabetes mellitus without complications; Z79.82 Long term (current) use of aspirin; Z87.891 Personal history of nicotine dependence | CPT/HCPCS: 99213 ==

== ENCOUNTER → 2025-10-10 08:42 | Outpatient (BNVA) | payer MEDICARE, MEDICAID, SELFPAY | PROVIDERS: PCP Family Medicine; Visit Provider Podiatrist Foot & Ankle Surgery | DX: E11.42 Type 2 diabetes mellitus with diabetic polyneuropathy (principal); L60.3 Nail dystrophy; L84 Corns and callosities; E11.8 Type 2 diabetes mellitus with unspecified complications; G62.9 Polyneuropathy, unspecified | CPT/HCPCS: 11057; 11721 ==

== ENCOUNTER 2025-10-25 14:25 | Outpatient (CLI) | payer OTHER, MEDICAID, SELFPAY ==
--- NOTE | 2025-10-25 14:30 | MM_ITS ---
WS: [id number] BILATERAL 3D TOMOSYNTHESIS DIGITAL SCREENING MAMMOGRAPHY WITH CAD CLINICAL INFORMATION: SCREENING HISTORY: Screening mammogram. No current complaints. COMPARISON: 2023 TECHNIQUE: Bilateral CC and MLO views. FINDINGS: Scattered fibroglandular densities bilaterally. No suspicious focal mass, asymmetry, calcifications, or architectural distortion. No evidence of malignancy. Incidental secretory calcifications. MM/MM [facility] tomosynthesis [id number] IMPRESSION: DENSITY: There are scattered areas of fibroglandular density. BI-RADS: 2 - Benign. FOLLOW UP: 1 Year Follow-up Recommend return to annual screening mammography.
== END 2025-10-25 14:26 | disposition home or self-care (01) ==
LOC: RAD 14:26
PROVIDERS: PCP Family Medicine; Visit Provider Family Medicine
DX: Z12.31 Encounter for screening mammogram for malignant neoplasm of breast (principal); Z79.899 Other long term (current) drug therapy; R92.323 Mammographic fibroglandular density, bilateral breasts; R92.1 Mammographic calcification found on diagnostic imaging of breast; M06.041 Rheumatoid arthritis without rheumatoid factor, right hand; M06.042 Rheumatoid arthritis without rheumatoid factor, left hand; R76.89 Other specified abnormal immunological findings in serum; Z71.85 Encounter for immunization safety counseling; M79.7 Fibromyalgia; M54.12 Radiculopathy, cervical region; Z79.52 Long term (current) use of systemic steroids
CPT/HCPCS: 36415; 77063; 77067; 80076; 82565; 85025; 85651; 86140; 99214